=== PATIENT | female | born 1960 | race Caucasian/White ===

== ENCOUNTER 2017-09-28 15:15 | Inpatient (IN) | payer OTHER ==
--- NOTE | 2017-09-28 15:38 | Emergency Department Report ---
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 She's had similar episode in the past and they told her it was thoracic chest wall pain. She denies any urinary burning frequency or urgency. Denies any nausea or vomiting. She has a history of high blood pressure but denies any history of heart disease. - ROS Review of Systems: All systems are negative unless stated in HPI above - Exam Vital Signs: Vital Signs 09/28/17 15:24 Temperature 98.7 F Pulse Rate 65 Respiratory 16 Rate Blood Pressure 136/85 O2 Sat by Pulse 99 Oximetry Physical Exam: Gen.: This is a 57-year-old female well-nourished well-developed in no acute distress Abdomen: Tender to palpate to epigastric area. Positive bowel sounds in all quadrants. CV: S1, S2. Regular rate and rhythm. No chest wall tenderness MSE screening note: Focused history and physical exam performed. Due to findings the following was ordered: ED Medical Decision Making - Medical Decision Making MDM: Patient screened by provider in triage area. Appropriate protocol initiated and patient to be seen in main ED by ED Disposition for MSE Condition: Stable
[2017-09-28 16:01] LABS: Basophils % (Auto) 0.8 % (0.0-1.8); Eosinophils % (Auto) 5.7 % (0.0-4.3); Hematocrit 43.7 % (30.3-42.9); Hemoglobin 14.5 gm/dl (10.1-14.3); Mean Corpuscular HGB Conc 33 % (30-34); Mean Corpuscular Hemoglobin 31 pg (28-32); Mean Corpuscular Volume 92 fl (79-97); Platelet Count 288 K/mm3 (140-440); Red Blood Count 4.77 M/mm3 (3.65-5.03); Red Cell Distribution Width 12.7 % (13.2-15.2); White Blood Count 9.3 K/mm3 (4.5-11.0)
[2017-09-28 16:08] LABS: Anion Gap 19 mmol/L; BUN/Creatinine Ratio 30; Blood Urea Nitrogen 15 mg/dL (7-17); Calcium 9.1 mg/dL (8.4-10.2); Carbon Dioxide 22 mmol/L (22-30); Chloride 101.8 mmol/L (98-107); Glucose 145 mg/dL (65-100); Potassium 4.4 mmol/L (3.6-5.0); Sodium 138 mmol/L (137-145)
[2017-09-28 16:55] LABS: Cholesterol 213 mg/dL (50-199); HDL Cholesterol 32 mg/dL (40-59); LDL Cholesterol,Direct TNR mg/dL (50-130); Triglycerides 426 mg/dL (2-149)
[2017-09-28 17:06] LABS: Bacteria,Urine 1+ /HPF (Negative); Bilirubin,Urine NEG (Negative); Blood,Urine NEG (Negative); Ketones,Urine TR mg/dL (Negative); Leukocyte Esterase,Urine MOD (Negative); Mucus,Urine FEW /HPF; Nitrite,Urine NEG (Negative)
[2017-09-28] MEDS ORDERED: BABY ASPIRIN PO ONE (17:30)
--- NOTE | 2017-09-28 17:38 | Emergency Department Report ---
ED Chest Pain HPI - General Chief Complaint: Chest Pain Stated Complaint: CHEST PAIN Time Seen by Provider: 09/28/17 15:35 Source: patient Mode of arrival: Ambulatory Limitations: Language Barrier - History of Present Illness Initial Comments: Patient is 57 years old female , she came today with mid sternal chest pain started around 2 PM this afternoon. Pain radiated to her back and neck described as heaviness and tightness she never had any pain like this before. No history of coronary artery disease before but she does not follow-up with any doctor. Patient denied shortness of breath, cough, fever. MD Complaint: chest pain -: This afternoon Onset: during exertion Pain Location: substernal Pain Radiation: back, neck Severity scale (0 -10): 5 Quality: tightness, pressure re: nausea - Related Data Allergies Allergy/AdvReac Type Severity Reaction Status Date / Time No Known Allergies Allergy Verified 09/28/17 15:29 Heart Score - HEART Score History: Moderately suspicious EKG: Non-specific Age: 45-65 Risk factors: 1-2 risk factors Troponin: 1-3x normal limit HEART Score: 5 - Critical Actions Critical Actions: 4-6 pts:12-16.6% risk of adverse cardiac event. Should be admitted ED Review of Systems ROS: Stated complaint: CHEST PAIN Other details as noted in HPI Comment: All other systems reviewed and negative Constitutional: denies: chills, fever Respiratory: denies: cough, orthopnea, shortness of breath, SOB with exertion, SOB at rest Cardiovascular: chest pain. denies: palpitations, dyspnea on exertion, orthopnea Gastrointestinal: denies: abdominal pain, nausea, vomiting, diarrhea, constipation, hematemesis Musculoskeletal: denies: back pain Neurological: weakness (generalized). denies: numbness (generalized), paresthesias, confusion, abnormal gait, vertigo ED Past Medical Hx - Past Medical History Previous Medical History?: Yes Hx Hypertension: Yes - Surgical History Past Surgical History?: Yes Additional Surgical History: adnoids - Social History Smoking Status: Current Every Day Smoker Substance Use Type: None ED Physical Exam - General Limitations: Language Barrier General appearance: alert, in no apparent distress - Head Head exam: Present: normocephalic, normal inspection - ENT ENT exam: Present: normal exam, normal orophraynx - Neck Neck exam: Present: normal inspection - Respiratory Respiratory exam: Present: normal lung sounds bilaterally, decreased breath sounds, prolonged expiratory. Absent: respiratory distress, wheezes, rales, rhonchi, chest wall tenderness, accessory muscle use - Cardiovascular Cardiovascular Exam: Present: regular rate, normal rhythm, normal heart sounds - GI/Abdominal GI/Abdominal exam: Present: soft, normal bowel sounds. Absent: distended, tenderness, guarding, rebound, rigid, diminished bowel sounds, mass, bruit, pulsatile mass, hernia - Extremities Exam Extremities exam: Present: normal inspection, full ROM, normal capillary refill - Back Exam Back exam: Present: normal inspection. Absent: tenderness, CVA tenderness (R), CVA tenderness (L) - Neurological Exam Neurological exam: Present: alert, oriented X3, CN II-XII intact, normal gait, reflexes normal. Absent: motor sensory deficit - Skin Skin exam: Present: warm, intact, normal color ED Course Vital Signs 09/28/17 09/28/17 09/28/17 15:24 16:57 16:59 Temperature 98.7 F 98.5 F Pulse Rate 65 60 60 Respiratory 16 16 Rate Blood Pressure 136/85 Blood Pressure 121/70 [Right] O2 Sat by Pulse 99 Oximetry 09/28/17 17:01 Temperature Pulse Rate Respiratory 18 Rate Blood Pressure Blood Pressure [Right] O2 Sat by Pulse 97 Oximetry - Reevaluation(s) Reevaluation #2: 09/28/17 17:42 patient stated that she is pain free now ED Medical Decision Making - Lab Data Result diagrams: 09/28/17 15:35 09/28/17 15:35 - EKG Data -: EKG Interpreted by De EKG shows normal: sinus rhythm Rate: normal - EKG Data Interpretation: no acute changes - Medical Decision Making discussed with Dr Sommer to admit to the hospital for Non STEMI and chest pain work-up Critical care attestation.: If time is entered above; I have spent that time in minutes in the direct care of this critically ill patient, excluding procedure time. ED Disposition Clinical Impression: Non-ST elevated myocardial infarction, Chest pain Disposition: DC-[id number] OP ADMIT IP TO THIS HOSP Is pt being admited?: Yes Condition: Stable Instructions: Chest Pain (ED)
[2017-09-28] MEDS ORDERED: NITROSTAT SL PRN (18:01)
[2017-09-28] MEDS ORDERED: TYLENOL PO PRN (18:01)
[2017-09-28] MEDS ORDERED: PROVENTIL IH PRN (18:01)
[2017-09-28] MEDS ORDERED: SODIUM CHLORIDE FLUSH SYRINGE 10 ML IV PRN (18:01)
[2017-09-28] MEDS ORDERED: ZOFRAN IV PRN (18:01)
[2017-09-28] MEDS ORDERED: DILAUDID IV PRN (18:01)
[2017-09-28] MEDS ORDERED: MILK OF MAGNESIA PO PRN (18:01)
[2017-09-28] MEDS ORDERED: DULCOLAX PR PRN (18:01)
--- NOTE | 2017-09-28 18:01 | History and Physical Report ---
History of Present Illness Chief complaint: My chest hurts History of present illness: 57 YO Female with Nicotine Dependence, Obesity, HTN presents to ED for evaluation. Pt states that she experienced pain in her chest today. Pt states that pain started around 1400hrs. Pain is 5/10, substernal, radiates to her back and neck, crushing in nature, not worsened with exertion, or relieved with rest. Pt denies fever, chills, palpitations, NVD, syncope, productive cough, shortness of breath, recent ill contacts, BRBPR, hemoptysis, leg pain, calf pain , prolonted travel/immobility, individual/family history of DVT/PE. Pt seen and evaluated in ED and found to have elevated troponin. Past History Past Medical History: hypertension, other (obesity) Past Surgical History: tonsillectomy Social history: , lives with family, smoking Family history: diabetes, hypertension Medications and Allergies Allergies Allergy/AdvReac Type Severity Reaction Status Date / Time No Known Allergies Allergy Verified 09/28/17 15:29 Home Medications Medication Instructions Recorded Confirmed Last Taken Type No Known Home Medications [No 09/28/17 09/28/17 Unknown History Reported Home Medications] Review of Systems Constitutional: no weight loss, no weight gain, no fever, no chills, no sweats Ears, nose, mouth and throat: no ear pain, no ear discharge, no tinnitis, no decreased hearing, no nose pain, no nasal congestion, no nasal discharge Breasts: no change in shape, no swelling, no mass Cardiovascular: chest pain, no orthopnea, no palpitations, no syncope, no shortness of breath, no dyspnea on exertion, no paroxysmal nocturnal dyspnea Respiratory: no cough, no cough with sputum, no excessive sputum, no hemoptysis , no shortness of breath Gastrointestinal: no abdominal pain, no nausea, no vomiting, no diarrhea Genitourinary Female: no menorrhagia, no dysuria, no urinary frequency, no urgency, no stress incontinence Rectal: no pain, no incontinence, no bleeding Musculoskeletal: no neck stiffness, no neck pain, no shooting arm pain, no arm numbness/tingling, no low back pain Integumentary: no rash, no pruritis, no redness, no sores, no wounds Neurological: no transient paralysis, no paralysis, no weakness, no parathesias , no numbness, no tingling Psychiatric: no anxiety, no memory loss, no change in sleep habits, no sleep disturbances, no insomnia, no hypersomnia Endocrine: no cold intolerance, no heat intolerance, no polyphagia, no excessive thirst, no polydipsia Hematologic/Lymphatic: no easy bruising, no easy bleeding Allergic/Immunologic: no urticaria, no allergic rhinitis, no wheezing Exam - Constitutional Vitals: Temp Pulse Resp BP Pulse Ox 98.5 F 60 18 121/70 97 09/28/17 16:57 09/28/17 16:59 09/28/17 17:01 09/28/17 16:57 09/28/17 17:01 General appearance: Present: no acute distress, well-nourished - EENT Eyes: Present: PERRL ENT: hearing intact, clear oral mucosa - Neck Neck: Present: supple, normal ROM - Respiratory Respiratory effort: normal Respiratory: bilateral: CTA - Cardiovascular Heart Sounds: Present: S1 & S2. Absent: rub, click - Extremities Extremities: pulses symmetrical, No edema Peripheral Pulses: within normal limits - Abdominal General gastrointestinal: Present: soft, non-tender, non-distended, normal bowel sounds Female genitourinary: Present: normal - Integumentary Integumentary: Present: clear, warm, dry - Musculoskeletal Musculoskeletal: gait normal, strength equal bilaterally - Psychiatric Psychiatric: appropriate mood/affect, intact judgment & insight - Neurologic Neurologic: CNII-XII intact, moves all extremities Results - Labs CBC & Chem 7: 09/28/17 18:29 09/28/17 18:29 Labs: Abnormal lab results 09/28/17 09/28/17 Range/Units 15:35 15:35 Hgb 14.5 H (10.1-14.3) gm/dl Hct 43.7 H (30.3-42.9) % RDW 12.7 L (13.2-15.2) % Eos % (Auto) 5.7 H (0.0-4.3) % Eos # 0.5 H (0.0-0.4) K/mm3 Creatinine 0.5 L (0.7-1.2) mg/dL Glucose 145 H (65-100) mg/dL Troponin T 0.161 H* (0.00-0.029) ng/mL Triglycerides 426 H (2-149) mg/dL Cholesterol 213 H (50-199) mg/dL HDL Cholesterol 32 L (40-59) mg/dL Assessment and Plan - Patient Problems (1) Non-ST elevated myocardial infarction Current Visit: Yes Status: Acute Plan to address problem: ADmit to telemetry, Heparin drip, serial cardiac enzymes, ekg, cardiology consulted, echo, (2) HTN (hypertension) Current Visit: Yes Status: Acute Qualifiers: Hypertension type: H Plan to address problem: monitor bp q shift, continue medical management. (3) HLD (hyperlipidemia) Current Visit: Yes Status: Acute Qualifiers: Hyperlipidemia type: H Plan to address problem: lipid panel, statin therapy as indicated. low cholesterol diet, (4) Obesity (BMI 30.0-34.9) Current Visit: Yes Status: Acute Plan to address problem: balanced diet, increased physical activity at discharge (5) DVT prophylaxis Current Visit: Yes Status: Acute
[2017-09-28 18:41] LABS: Alanine Aminotransferase 22 units/L (7-56); Albumin 4.1 g/dL (3.9-5); Albumin/Globulin Ratio 2.1 %; Alkaline Phosphatase 99 units/L (35-129); Total Protein 6.1 g/dL (6.3-8.2)
[2017-09-28 18:59] LABS: Bilirubin,Direct < 0.2 mg/dL (0-0.2)
[2017-09-28 18:59] LABS: Eosinophils % (Auto) 4.9 % (0.0-4.3); Hematocrit 42.5 % (30.3-42.9); Hemoglobin 14.3 gm/dl (10.1-14.3); Mean Corpuscular HGB Conc 34 % (30-34); Mean Corpuscular Hemoglobin 31 pg (28-32); Mean Corpuscular Volume 91 fl (79-97); Platelet Count 276 K/mm3 (140-440); Red Blood Count 4.65 M/mm3 (3.65-5.03); Red Cell Distribution Width 12.7 % (13.2-15.2); White Blood Count 9.2 K/mm3 (4.5-11.0)
[2017-09-28] MEDS ORDERED: HEPARIN 10,000 UNITS/10 ML IV ONE (19:00)
[2017-09-28] MEDS ORDERED: HEPARIN/ 0.45% NACL-25,000 UNIT/500 ML 25,000 UNIT/500 ML BAG IV SCH (19:00)
[2017-09-28 19:01] LABS: Anion Gap 17 mmol/L; BUN/Creatinine Ratio 28; Blood Urea Nitrogen 14 mg/dL (7-17); Calcium 9.1 mg/dL (8.4-10.2); Carbon Dioxide 25 mmol/L (22-30); Chloride 101.7 mmol/L (98-107); Glucose 115 mg/dL (65-100); Potassium 4.4 mmol/L (3.6-5.0); Sodium 139 mmol/L (137-145)
[2017-09-28 19:08] LABS: INR 0.89 (0.87-1.13)
[2017-09-28 19:09] LABS: Partial Thromboplastin Time 29.1 Sec. (24.2-36.6)
--- NOTE | 2017-09-28 19:20 | XRay Report ---
FINAL REPORT EXAM: XR CHEST 1V AP HISTORY: chest pain TECHNIQUE: upright single view chest PRIORS: None. FINDINGS: Cardiac and mediastinal contours are unremarkable. No focal pulmonary infiltrate is identified. No pleural fluid collection seen. Pulmonary vasculature is unremarkable. IMPRESSION: Negative single-view chest
[2017-09-28] MEDS ORDERED: HEPARIN/ 0.45% NACL-25,000 UNIT/500 ML 25,000 UNIT/500 ML BAG ONE (19:41)
[2017-09-28] MEDS ORDERED: HEPARIN 10,000 UNITS/10 ML ONE (19:42)
[2017-09-29] MEDS: PEPCID PO SCH ×2 (00:45→15:47)
--- NOTE | 2017-09-29 09:50 | Progress Note ---
Assessment and Plan Assessment and plan: Patient is a 57 YO Female with Nicotine Dependence, Obesity, HTN presents to ED for evaluation of chest pain and noted to Have acute coronary syndrome. History was limited due to lung which barrier although persisted and was able to translate according to the patient's request. On admission Pt denies fever, chills, palpitations, NVD, syncope, productive cough, shortness of breath, recent ill contacts, BRBPR, hemoptysis, leg pain, calf pain, prolonted travel/immobility, individual/family history of DVT/PE. Acute coronary syndrome possible non-ST elevated MD * Discussed with cardiology concerned about subtle elevation of ST segments consistent with an inferior MD although not available old EKGs for comparison. They decided to proceed with cardiac catheterization and treatment for subacute inferior injury. Patient received 2 stents old chest with ICU. HTN HLD OBESITY WITH BMI 30.0-34.9 PLAN * Continue current treatment, Heparin gtt, ASA, statin. Plavix, or possible need second PCI. BB was not given on admission secondary to low BP and Heart rate * Echo * Counselling on weight loss * DVT/GI prophy The high probability of a clinically significant, sudden or life threatening deterioration of the [cardiac] system(s) required my full and direct attention, intervention and personal management. The aggregate critical care time was [35] minutes. This time is in addition to time spent performing reported procedures but includes the following: [x] Data Review and interpretation [x] Patient assessment and monitoring of vital signs [x] Documentation [x] Medication orders and management History Interval history: Patient seen and examined in no acute distress she is Korean-speaking interpretation provided by geriatric nursing assistant. Patient's request. At this point she denies any further chest pain nausea vomiting or diarrhea. Hospitalist Physical - Physical exam Narrative exam: VITAL SIGNS: Reviewed. GENERAL: The patient appeared well nourished and normally developed. Vital signs as documented. HEAD: No signs of head trauma. EYES: Pupils are equal. Extraocular motions intact. EARS: Hearing grossly intact. MOUTH: Oropharynx is normal. NECK: No adenopathy, no JVD. CHEST: Chest with clear breath sounds bilaterally. No wheezes, rales, or rhonchi. CARDIAC: Regular rate and rhythm. S1 and S2, without murmurs, gallops, or rubs. VASCULAR: No Edema. Peripheral pulses normal and equal in all extremities. ABDOMEN: Soft, without detectable tenderness. No sign of distention. No rebound or guarding, and no masses palpated. Bowel Sounds normal. MUSCULOSKELETAL: Good range of motion of all major joints. Extremities without clubbing, cyanosis or edema. NEUROLOGIC EXAM: Alert and oriented x 3. No focal sensory or strength deficits. Speech normal. Follows commands. PSYCHIATRIC: Mood normal. SKIN: No rash or lesions. - Constitutional Vitals: Temp Pulse Resp BP Pulse Ox 99.5 F 65 17 115/61 94 09/29/17 08:17 09/29/17 08:17 09/29/17 08:17 09/29/17 08:17 09/29/17 08:17 General appearance: Present: no acute distress, well-nourished Results - Labs CBC & Chem 7: 09/30/17 03:34 10/01/17 04:58 Labs: Laboratory Last Values WBC 9.2 K/mm3 (4.5-11.0) 09/28/17 18:29 RBC 4.65 M/mm3 (3.65-5.03) 09/28/17 18:29 Hgb 14.3 gm/dl (10.1-14.3) 09/28/17 18:29 Hct 42.5 % (30.3-42.9) 09/28/17 18:29 MCV 91 fl (79-97) 09/28/17 18:29 MCH 31 pg (28-32) 09/28/17 18:29 MCHC 34 % (30-34) 09/28/17 18:29 RDW 12.7 % (13.2-15.2) L 09/28/17 18:29 Plt Count 276 K/mm3 (140-440) 09/28/17 18:29 Lymph % (Auto) 27.6 % (13.4-35.0) 09/28/17 18:29 [place] % (Auto) 4.8 % (0.0-7.3) 09/28/17 18:29 Eos % (Auto) 4.9 % (0.0-4.3) H 09/28/17 18:29 Baso % (Auto) 1.0 % (0.0-1.8) 09/28/17 18:29 Lymph # 2.6 K/mm3 (1.2-5.4) 09/28/17 18:29 [place] # 0.4 K/mm3 (0.0-0.8) 09/28/17 18:29 Eos # 0.5 K/mm3 (0.0-0.4) H 09/28/17 18:29 Baso # 0.1 K/mm3 (0.0-0.1) 09/28/17 18:29 Seg Neutrophils % 61.7 % (40.0-70.0) 09/28/17 18:29 Seg Neutrophils # 5.7 K/mm3 (1.8-7.7) 09/28/17 18:29 PT 12.5 Sec. (12.2-14.9) 09/28/17 18:29 INR 0.89 (0.87-1.13) 09/28/17 18:29 APTT 29.1 Sec. (24.2-36.6) 09/28/17 18:29 Heparin Anti-Xa Level 0.31 U.I./ml (0.3-0.7) 09/29/17 00:58 Sodium 139 mmol/L (137-145) 09/28/17 18:29 Potassium 4.4 mmol/L (3.6-5.0) 09/28/17 18:29 Chloride 101.7 mmol/L (98-107) 09/28/17 18:29 Carbon Dioxide 25 mmol/L (22-30) 09/28/17 18:29 Anion Gap 17 mmol/L 09/28/17 18:29 BUN 14 mg/dL (7-17) 09/28/17 18:29 Creatinine 0.5 mg/dL (0.7-1.2) L 09/28/17 18:29 Estimated GFR > 60 ml/min 09/28/17 18:29 BUN/Creatinine Ratio 28 % 09/28/17 18:29 Glucose 115 mg/dL (65-100) H 09/28/17 18:29 Calcium 9.1 mg/dL (8.4-10.2) 09/28/17 18:29 Total Bilirubin 0.20 mg/dL (0.1-1.2) 09/28/17 15:35 Direct Bilirubin < 0.2 mg/dL (0-0.2) 09/28/17 15:35 Indirect Bilirubin 0.0 mg/dL 09/28/17 15:35 AST 31 units/L (5-40) 09/28/17 15:35 ALT 22 units/L (7-56) 09/28/17 15:35 Alkaline Phosphatase 99 units/L (35-129) 09/28/17 15:35 Troponin T 0.382 ng/mL (0.00-0.029) H* D 09/29/17 00:58 Total Protein 6.1 g/dL (6.3-8.2) L 09/28/17 15:35 Albumin 4.1 g/dL (3.9-5) 09/28/17 15:35 Albumin/Globulin Ratio 2.1 % 09/28/17 15:35 Triglycerides 426 mg/dL (2-149) H 09/28/17 15:35 Cholesterol 213 mg/dL (50-199) H 09/28/17 15:35 LDL Cholesterol Direct TNR 09/28/17 15:35 HDL Cholesterol 32 mg/dL (40-59) L 09/28/17 15:35 Cholesterol/HDL Ratio 6.65 % 09/28/17 15:35 Urine Color Yellow (Yellow) 09/28/17 15:58 Urine Turbidity Clear (Clear) 09/28/17 15:58 Urine pH 6.0 (5.0-7.0) 09/28/17 15:58 Ur Specific [place] 1.023 (1.003-1.030) 09/28/17 15:58 Urine Protein 100 mg/dl mg/dL (Negative) 09/28/17 15:58 Urine Glucose (UA) Neg mg/dL (Negative) 09/28/17 15:58 Urine Ketones Tr mg/dL (Negative) 09/28/17 15:58 Urine Blood Neg (Negative) 09/28/17 15:58 Urine Nitrite Neg (Negative) 09/28/17 15:58 Urine Bilirubin Neg (Negative) 09/28/17 15:58 Urine Urobilinogen 2.0 mg/dL (<2.0) 09/28/17 15:58 Ur Leukocyte Esterase Mod (Negative) 09/28/17 15:58 Urine WBC (Auto) 1.0 /HPF (0.0-6.0) 09/28/17 15:58 Urine RBC (Auto) 2.0 /HPF (0.0-6.0) 09/28/17 15:58 U Epithel Cells (Auto) 8.0 /HPF (0-13.0) 09/28/17 15:58 Urine Bacteria (Auto) 1+ /HPF (Negative) 09/28/17 15:58 Calcium Oxalate Crystal 1+ 09/28/17 15:58 Urine Mucus Few /HPF 09/28/17 15:58 - Imaging and Cardiology Chest x-ray: image reviewed (no acute pathology)
--- NOTE | 2017-09-29 11:12 | Consultation ---
History of Present Illness Consult date: 09/29/17 Consult reason: chest pain History of present illness: The patient is a 57-year-old Uz[place]-speaking female who is visiting from [place]. History is difficult due to long wait barrier, but the patient's daughter is at the bedside translating. She presented to the hospital yesterday with chest pain. Was seen in the emergency room, evaluated and referred for admission. Cardiac consultation was requested for chest pain assessment. On further review of the EKGs, I find that she has QS complexes in the inferior leads with subtle elevation in the ST segments, consistent with an inferior myocardial infarction. There are no available old ECGs for comparison, therefore would have to assume that this is a possible acute or subacute inferior injury. Patient is currently comfortable, asymptomatic and hemodynamically stable on medications. Past medical history is reported with a history of hypertension, although patient has no current list of medications. She denies any prior cardiac history. Past History Past Medical History: hypertension, other (obesity) Past Surgical History: tonsillectomy Social history: , lives with family, smoking Family history: diabetes, hypertension Medications and Allergies Allergies Allergy/AdvReac Type Severity Reaction Status Date / Time No Known Allergies Allergy Verified 09/28/17 15:29 Home Medications Medication Instructions Recorded Confirmed Last Taken Type No Known Home Medications [No 09/28/17 09/28/17 Unknown History Reported Home Medications] Active Meds: Active Medications Acetaminophen (Tylenol) 650 mg PO Q4H PRN PRN Reason: Pain MILD(1-3)/Fever >100.5/LIM Albuterol (Proventil) 2.5 mg IH Q4HRT PRN PRN Reason: Shortness Of Breath Atorvastatin Calcium (Lipitor) 40 mg PO QHS ON LICENSE OF [facility] Last Admin: 09/29/17 00:45 Dose: 40 mg Bisacodyl (Dulcolax) [address] QDAY PRN PRN Reason: Constipation unrelieved by MOM Famotidine (Pepcid) 20 mg PO BID ON LICENSE OF [facility] Last Admin: 09/29/17 00:45 Dose: 20 mg Hydromorphone HCl (Dilaudid) 0.5 mg IV Q3H PRN PRN Reason: Pain , Severe (7-10) Heparin Sodium/Sodium Chloride (Heparin/ 0.45% Nacl-25,000 Unit/500 Ml) 25,000 unit in 500 mls @ 20 mls/hr IV TITRATE IVAN; 1,000 UNITS/HR PRN Reason: Protocol Last Titration: 09/29/17 02:39 Dose: 1,000 units/hr, 20 mls/hr Magnesium Hydroxide (Milk Of Magnesia) 30 ml PO Q4H PRN PRN Reason: Constipation Nitroglycerin (Nitrostat) 0.4 mg SL Q5M PRN PRN Reason: Chest Pain Ondansetron HCl (Zofran) 4 mg IV Q8H PRN PRN Reason: N/V unrelieved by Reglan Sodium Chloride (Sodium Chloride Flush Syringe 10 Ml) 10 ml IV PRN PRN PRN Reason: LINE FLUSH Review of Systems Cardiovascular: chest pain, shortness of breath, no orthopnea, no palpitations, no rapid/irregular heart beat, no edema, no syncope, no lightheadedness Physical Examination Vital Signs Temp Pulse Resp BP Pulse Ox 98.7 F 65 16 136/85 99 09/28/17 15:24 09/28/17 15:24 09/28/17 15:24 09/28/17 15:24 09/28/17 15:24 General appearance: no acute distress HEENT: Positive: PERRL Neck: Positive: neck supple Cardiac: Positive: Reg Rate and Rhythm Lungs: Positive: clear to auscultation Neuro: Positive: Grossly Intact Abdomen: Positive: Soft Female genitourinary: deferred Skin: Positive: Clear Extremities: Absent: edema Results 09/28/17 18:29 09/28/17 18:29 Coagulation 09/28/17 Range/Units 18:29 PT 12.5 (12.2-14.9) Sec. INR 0.89 (0.87-1.13) APTT 29.1 (24.2-36.6) Sec. CBC 09/28/17 Range/Units 18:29 WBC 9.2 (4.5-11.0) K/mm3 RBC 4.65 (3.65-5.03) M/mm3 Hgb 14.3 (10.1-14.3) gm/dl Hct 42.5 (30.3-42.9) % Plt Count 276 (140-440) K/mm3 Lymph # 2.6 (1.2-5.4) K/mm3 [place] # 0.4 (0.0-0.8) K/mm3 Eos # 0.5 H (0.0-0.4) K/mm3 Baso # 0.1 (0.0-0.1) K/mm3 Comprehensive Metabolic Panel 09/28/17 Range/Units 18:29 Sodium 139 (137-145) mmol/L Potassium 4.4 (3.6-5.0) mmol/L Chloride 101.7 (98-107) mmol/L Carbon Dioxide 25 (22-30) mmol/L BUN 14 (7-17) mg/dL Creatinine 0.5 L (0.7-1.2) mg/dL Glucose 115 H (65-100) mg/dL Calcium 9.1 (8.4-10.2) mg/dL EKG interpretations - Telemetry EKG Rhythm: Sinus Rhythm (with QS complexes and ST elevation in inferior leads) Assessment and Plan - Patient Problems (1) Acute coronary syndrome Current Visit: Yes Status: Acute Plan to address problem: Patient presented with chest pain and ECG is abnormal, with QS complexes and inferior ST elevations suggestive of acute or subacute inferior injury. We will recommend immediate cardiac catheterization.
[2017-09-29] MEDS ORDERED: HEPARIN/NS 5000 UNIT/500ML(CATH LAB) 1,000 ML IR ONE (11:13)
[2017-09-29] MEDS ORDERED: NITROGLYCERIN SYRINGE 3 ML ONE (11:14)
[2017-09-29] MEDS ORDERED: CALAN ONE (11:14)
[2017-09-29] MEDS ORDERED: NACL 0.9% 500 ML 500 ML ONE ×2 (11:15→13:34)
[2017-09-29] MEDS: VERSED ONE ×2 (11:54→12:01)
[2017-09-29] MEDS: SUBLIMAZE ONE ×2 (11:54→12:01)
[2017-09-29] MEDS: XYLOCAINE 2% INFILTRATI ONE ×2 (11:55→12:04)
[2017-09-29] MEDS ORDERED: NACL 0.9% 500 ML 500 ML IV SCH (12:00)
[2017-09-29] MEDS: HEPARIN 10,000 UNITS/10 ML ONE ×2 (12:11→12:44)
[2017-09-29] MEDS ORDERED: AGGRASTAT DRIP (12.5 MG/250 ML) 12,500 MCG/250 ML BAG IV ONE (12:17)
[2017-09-29] MEDS ORDERED: ALUM-MAG HYDROX-SIMETH 200-200-20MG/5ML ONE (12:44)
[2017-09-29] MEDS ORDERED: PLAVIX ONE (12:44)
--- NOTE | 2017-09-29 13:09 | Event Note ---
Date: 09/29/17 Cardiac cath via R femoral, no complications. Findings: RCA 100% (KENN) LAD 85% OM 80% LVEF 50-55%. Successful adhoc PCI of the RCA, excellent result, 0% residual, HUMZA 3 flow restored. 2.5-3.0mm DE stents. We will follow up with staged PCI of the LAD and OM on .
[2017-09-29] MEDS ORDERED: BABY ASPIRIN ONE (13:21)
[2017-09-29] MEDS ORDERED: FLUSH HEPARIN IV ONE (13:23)
--- NOTE | 2017-09-29 13:29 | Cardiac Catherization Report ---
CARDIAC CATHETERIZATION AND CORONARY ANGIOPLASTY REASON FOR PROCEDURE: The patient is a 57-year-old woman who presented with chest pain, admitted for acute coronary syndrome. ECGs revealed QS complexes in the inferior leads, associated with subtle ST elevations, consistent with a subacute or acute inferior injury. Immediate cardiac catheterization was recommended. PROCEDURE: The patient was prepped and draped in a sterile fashion after informed consent. The right femoral artery was entered using the Seldinger technique followed by placement of a 6-[place] Islander sheath. Selective left and right coronary angiography was performed using #4 right and left Anderson catheters. The right Judkin's was used for left ventricle angiography. The angiograms were reviewed. CORONARY ANGIOGRAPHY: The left main coronary artery was free of significant disease. The left anterior descending artery contained a long, irregular 85-90% stenosis of its mid segment, just after the origin of a medium sized diagonal branch. A [id number] ramus intermedius artery was free of significant disease. The large obtuse marginal branch of the circumflex artery was notable for a focal, 75-80% stenosis of its mid segment. The right coronary artery was dominant. This vessel was completely occluded in its distal AV groove segment, just after the acute margin. Left ventricular systolic function was at lower limits of normal, ejection fraction 50-55%. CORONARY ANGIOPLASTY: The angiograms were reviewed. We recommended ad hoc angioplasty of the distal right coronary artery occlusion, which is the infarct-related lesion. Following this, she will be recommended for staged 2-vessel intervention of the mid LAD and mid circumflex. We selected a #4 right Anderson guiding catheter and advanced to the right coronary ostium. A 0.014 inch Supervisor Riveting 50 guidewire was introduced, successfully penetrating the distal occlusion. Following wire placement, a balloon angioplasty was performed using a 2.5 mm balloon catheter. This reestablished flow, demonstrating a long, irregular, severe residual lesion between the acute margin on the origin of the right posterior descending branch. Serial, 2.5-3.0 mm Xience drug-eluting stents were then deployed, covering the entire lesional segment. Following stenting, there was an excellent angiographic result, HUMZA 3 flow was restored, and there was no residual stenosis. The procedure was well tolerated by the patient and there were no complications. CONCLUSION: 1. Severe 3-vessel coronary artery disease. 2. Distal AV groove occlusion of the right coronary artery is the infarct-related lesion. 3. Successful angioplasty and stenting, adventism of HUMZA 3 flow and excellent angiographic result following stent deployment, 2.5-3.0 mm drug-eluting stents. 4. Severe disease of the mid LAD, mid obtuse marginal branch, will be recommended for an elective staged intervention. 5. Left ventricular systolic function at the lower limits of normal, ejection fraction of 50-55%. [facility]# [id number] MICHELLE/NTS
[2017-09-29] MEDS ORDERED: HEPARIN 10,000 UNITS/10 ML IV ONE (14:00)
[2017-09-29] MEDS ORDERED: BABY ASPIRIN PO ONE (14:00)
[2017-09-29] MEDS ORDERED: NACL 0.9% 1000 ML 1,000 ML IV SCH (14:00)
[2017-09-29] MEDS: AGGRASTAT DRIP (12.5 MG/250 ML) 12,500 MCG/250 ML BAG IV SCH (15:15)
--- NOTE | 2017-09-29 18:19 | Consultation ---
History of Present Illness Consult date: 09/29/17 Requesting physician: DAYNA LIU Past History Past Medical History: hypertension, other (obesity) Past Surgical History: tonsillectomy Social history: , lives with family, smoking Family history: diabetes, hypertension Medications and Allergies Allergies Allergy/AdvReac Type Severity Reaction Status Date / Time No Known Allergies Allergy Verified 09/28/17 15:29 Home Medications Medication Instructions Recorded Confirmed Last Taken Type No Known Home Medications [No 09/28/17 09/28/17 Unknown History Reported Home Medications] Active Meds: Active Medications Acetaminophen (Tylenol) 650 mg PO Q4H PRN PRN Reason: Pain MILD(1-3)/Fever >100.5/LIM Albuterol (Proventil) 2.5 mg IH Q4HRT PRN PRN Reason: Shortness Of Breath Aspirin (Halfprin Ec) 81 mg PO QDAY IVAN Atorvastatin Calcium (Lipitor) 40 mg PO QHS [facility] Last Admin: 09/29/17 00:45 Dose: 40 mg Bisacodyl (Dulcolax) 10 mg KS QDAY PRN PRN Reason: Constipation unrelieved by MOM Clopidogrel Bisulfate (Plavix) 75 mg PO QDAY IVAN Famotidine (Pepcid) 20 mg PO BID [facility] Last Admin: 09/29/17 15:47 Dose: Not Given Hydromorphone HCl (Dilaudid) 0.5 mg IV Q3H PRN PRN Reason: Pain , Severe (7-10) Sodium Chloride (Nacl 0.45%) 500 mls @ 50 mls/hr IV DIRECT IVAN Sodium Chloride (Nacl 0.9% 500 Ml) 500 mls @ 50 mls/hr IV DIRECT IVAN Stop: 09/29/17 21:59 Last Admin: 09/29/17 13:41 Dose: 50 mls/hr Tirofiban/Sodium Chloride (Aggrastat Drip (12.5 Mg/250 Ml)) 12,500 mcg in 250 mls @ 13.5 mls/hr IV DIRECT IVAN PRN Reason: Protocol Stop: 10/01/17 13:59 Last Admin: 09/29/17 15:15 Dose: 13.5 mls/hr Sodium Chloride (Nacl 0.9% 1000 Ml) 1,000 mls @ 100 mls/hr IV DIRECT IVAN Stop: 09/30/17 01:59 Last Admin: 09/29/17 17:50 Dose: 100 mls/hr Isosorbide Mononitrate (Imdur) 30 mg PO QDAY IVAN Magnesium Hydroxide (Milk Of Magnesia) 30 ml PO Q4H PRN PRN Reason: Constipation Metoprolol Tartrate (Lopressor) 12.5 mg PO BID IVAN Nitroglycerin (Nitrostat) 0.4 mg SL Q5M PRN PRN Reason: Chest Pain Ondansetron HCl (Zofran) 4 mg IV Q8H PRN PRN Reason: N/V unrelieved by Reglan Sodium Chloride (Sodium Chloride Flush Syringe 10 Ml) 10 ml IV PRN PRN PRN Reason: LINE FLUSH Physical Examination Vital signs: Vital Signs Temp Pulse Resp BP Pulse Ox 98.7 F 65 16 136/85 99 09/28/17 15:24 09/28/17 15:24 09/28/17 15:24 09/28/17 15:24 09/28/17 15:24 Results - Laboratory Findings CBC and BMP: 09/28/17 18:29 09/28/17 18:29 PT/INR, D-dimer PT 12.5 Sec. (12.2-14.9) 09/28/17 18:29 INR 0.89 (0.87-1.13) 09/28/17 18:29 Abnormal lab findings: Abnormal Labs 09/28/17 09/28/17 09/28/17 18:29 18:29 18:29 RDW 12.7 L Eos % (Auto) 4.9 H Eos # 0.5 H Activated Clotting Time Creatinine 0.5 L Glucose 115 H POC Glucose Troponin T 0.224 H* D 09/28/17 09/29/17 09/29/17 21:16 00:58 07:28 RDW Eos % (Auto) Eos # Activated Clotting Time Creatinine Glucose POC Glucose 147 H Troponin T 0.303 H* D 0.382 H* D 09/29/17 09/29/17 09/29/17 12:33 12:42 13:13 RDW Eos % (Auto) Eos # Activated Clotting Time 406 H 191 H 213 H Creatinine Glucose POC Glucose Troponin T 09/29/17 14:33 RDW Eos % (Auto) Eos # Activated Clotting Time Creatinine Glucose POC Glucose 133 H Troponin T
[2017-09-29] MEDS: IMDUR PO SCH (19:23)
[2017-09-29 22:36] LABS: Hemoglobin 13.5 gm/dl (10.1-14.3)
[2017-09-30] MEDS: AGGRASTAT DRIP (12.5 MG/250 ML) 12,500 MCG/250 ML BAG IV SCH ×2 (02:15→19:20)
[2017-09-30] MEDS: PEPCID PO SCH ×2 (02:27→09:50)
[2017-09-30] MEDS: LOPRESSOR PO SCH ×2 (02:27→09:50)
[2017-09-30] MEDS: NACL 0.45% 500 ML IV SCH ×2 (03:51→10:47)
[2017-09-30 03:54] LABS: Basophils % (Auto) 0.9 % (0.0-1.8); Eosinophils % (Auto) 5.2 % (0.0-4.3); Hematocrit 36.8 % (30.3-42.9); Hemoglobin 12.9 gm/dl (10.1-14.3); Mean Corpuscular HGB Conc 35 % (30-34); Mean Corpuscular Hemoglobin 32 pg (28-32); Mean Corpuscular Volume 91 fl (79-97); Platelet Count 246 K/mm3 (140-440); Red Blood Count 4.05 M/mm3 (3.65-5.03); Red Cell Distribution Width 12.6 % (13.2-15.2); White Blood Count 7.6 K/mm3 (4.5-11.0)
[2017-09-30 04:16] LABS: Creatine Kinase MB 17.5 ng/mL (0.0-4.0)
[2017-09-30 04:18] LABS: Anion Gap 17 mmol/L; BUN/Creatinine Ratio 25; Blood Urea Nitrogen 10 mg/dL (7-17); Calcium 8.1 mg/dL (8.4-10.2); Carbon Dioxide 21 mmol/L (22-30); Creatine Kinase 327 units/L (30-135); Glucose 132 mg/dL (65-100); Potassium 3.9 mmol/L (3.6-5.0); Sodium 141 mmol/L (137-145)
[2017-09-30] MEDS: IMDUR PO SCH (09:50)
[2017-09-30] MEDS: HALFPRIN EC PO SCH (09:50)
[2017-09-30] MEDS: PLAVIX PO SCH (10:47)
--- NOTE | 2017-09-30 11:43 | Progress Note ---
Assessment and Plan ACS (NSTEMI) HTNTobacco Use disorder CAD s/p stenting Hyperlipidemia Obesity (BMI 33) - Continue anticoagulation / antiplatelet therapy - secondary prevention; tobacco cessation; lipid therapy; ASA; Plavix - weight loss counselled - GI prophylaxis - further interventional treatments per cardiology ...care plan discussed with patient and daughter in room Subjective Date of service: 09/30/17 Principal diagnosis: ACS; CAD s/p stenting; tobacco use disorder Interval history: Patient is seen today for: ACS; CAD s/p stenting; tobacco use disorder Seen and examined at bedside; 24hour events reviewed; nursing and respiratory care staff consulted; no adverse overnight events reported to me; resting peacefully in bed; denies acute chest pains or increased SOB; No N/V/F/C; daughter in law in room; No N/V/F/C Objective Vital Signs - 12hr 09/29/17 09/30/17 09/30/17 23:50 00:00 00:10 Temperature 98.8 F Pulse Rate 62 61 61 Respiratory 17 17 17 Rate Blood Pressure 126/61 121/62 121/62 O2 Sat by Pulse 95 97 97 Oximetry 09/30/17 09/30/17 09/30/17 00:20 00:30 00:40 Temperature Pulse Rate 62 65 61 Respiratory 17 19 18 Rate Blood Pressure 106/53 121/61 121/61 O2 Sat by Pulse 96 96 97 Oximetry 09/30/17 09/30/17 09/30/17 00:50 01:00 01:10 Temperature Pulse Rate 60 59 L 63 Respiratory 17 16 20 Rate Blood Pressure 107/65 117/55 117/55 O2 Sat by Pulse 98 97 95 Oximetry 09/30/17 09/30/17 09/30/17 01:20 01:30 01:40 Temperature Pulse Rate 61 58 L 59 L Respiratory 17 17 17 Rate Blood Pressure 125/59 115/55 117/55 O2 Sat by Pulse 94 97 97 Oximetry 09/30/17 09/30/17 09/30/17 01:50 02:00 02:10 Temperature Pulse Rate 60 64 65 Respiratory 18 16 18 Rate Blood Pressure 112/61 120/59 120/59 O2 Sat by Pulse 97 98 97 Oximetry 09/30/17 09/30/17 09/30/17 02:20 02:27 02:30 Temperature Pulse Rate 61 65 57 L Respiratory 16 15 Rate Blood Pressure 113/60 103/62 120/65 O2 Sat by Pulse 95 96 Oximetry 09/30/17 09/30/17 09/30/17 02:40 02:50 03:00 Temperature Pulse Rate 49 L 61 64 Respiratory 12 14 17 Rate Blood Pressure 120/65 126/68 118/73 O2 Sat by Pulse 99 98 96 Oximetry 09/30/17 09/30/17 09/30/17 03:10 03:20 03:30 Temperature Pulse Rate 60 61 60 Respiratory 15 17 15 Rate Blood Pressure 118/73 112/67 115/62 O2 Sat by Pulse 96 97 97 Oximetry 09/30/17 09/30/17 09/30/17 03:40 03:50 04:00 Temperature 98.1 F Pulse Rate 67 61 65 Respiratory 17 18 12 Rate Blood Pressure 115/62 120/53 112/59 O2 Sat by Pulse 96 96 98 Oximetry 09/30/17 09/30/17 09/30/17 04:10 04:20 04:30 Temperature Pulse Rate 72 61 58 L Respiratory 17 14 17 Rate Blood Pressure 112/59 105/54 106/54 O2 Sat by Pulse 97 97 95 Oximetry 09/30/17 09/30/17 09/30/17 04:40 04:50 05:00 Temperature Pulse Rate 63 57 L 55 L Respiratory 19 17 15 Rate Blood Pressure 106/54 112/61 110/60 O2 Sat by Pulse 95 96 96 Oximetry 09/30/17 09/30/17 09/30/17 05:10 05:20 05:30 Temperature Pulse Rate 59 L 59 L 59 L Respiratory 15 15 15 Rate Blood Pressure 110/60 113/58 97/54 O2 Sat by Pulse 96 96 96 Oximetry 09/30/17 09/30/17 09/30/17 05:40 05:50 06:00 Temperature Pulse Rate 58 L 57 L 58 L Respiratory 15 17 16 Rate Blood Pressure 97/54 108/60 113/61 O2 Sat by Pulse 96 97 96 Oximetry 09/30/17 09/30/17 09/30/17 06:10 06:20 06:30 Temperature Pulse Rate 66 64 56 L Respiratory 12 15 Rate Blood Pressure 113/61 108/60 119/68 O2 Sat by Pulse 98 98 97 Oximetry 09/30/17 09/30/17 09/30/17 07:00 07:10 07:20 Temperature Pulse Rate 52 L 61 56 L Respiratory 16 21 14 Rate Blood Pressure 112/73 112/73 126/76 O2 Sat by Pulse 98 98 98 Oximetry 09/30/17 09/30/17 09/30/17 07:30 07:40 07:50 Temperature Pulse Rate 53 L 61 57 L Respiratory 15 14 15 Rate Blood Pressure 137/77 137/77 121/59 O2 Sat by Pulse 98 97 97 Oximetry 09/30/17 09/30/17 09/30/17 08:00 08:10 08:20 Temperature 98.9 F Pulse Rate 58 L 56 L 57 L Respiratory 13 15 14 Rate Blood Pressure 121/59 118/67 127/67 O2 Sat by Pulse 99 97 97 Oximetry 09/30/17 09/30/17 09/30/17 08:30 08:40 08:48 Temperature Pulse Rate 63 58 L Respiratory 15 16 Rate Blood Pressure 127/72 127/72 O2 Sat by Pulse 99 98 98 Oximetry 09/30/17 09/30/17 09/30/17 08:50 09:00 09:10 Temperature Pulse Rate 60 57 L 58 L Respiratory 12 13 12 Rate Blood Pressure 135/74 135/74 118/65 O2 Sat by Pulse 99 99 99 Oximetry 09/30/17 09/30/17 09/30/17 09:20 09:30 09:40 Temperature Pulse Rate 59 L 60 63 Respiratory 15 16 17 Rate Blood Pressure 134/79 126/76 126/76 O2 Sat by Pulse 98 99 98 Oximetry 09/30/17 09/30/17 09/30/17 09:50 10:00 10:10 Temperature Pulse Rate 60 72 67 Respiratory 18 13 15 Rate Blood Pressure 122/70 122/70 145/82 O2 Sat by Pulse 99 98 98 Oximetry 09/30/17 09/30/17 09/30/17 10:20 10:30 10:40 Temperature Pulse Rate 59 L 63 59 L Respiratory 20 12 15 Rate Blood Pressure 130/72 134/75 134/75 O2 Sat by Pulse 98 98 98 Oximetry 09/30/17 09/30/17 09/30/17 10:50 11:00 11:10 Temperature Pulse Rate 57 L 52 L 58 L Respiratory 18 16 21 Rate Blood Pressure 108/61 108/62 108/61 O2 Sat by Pulse 98 98 98 Oximetry Constitutional: no acute distress, alert Eyes: non-icteric ENT: oropharynx moist, other (mallampatti 2) Neck: supple, no lymphadenopathy, no JVD, other (no thyromegaly) Effort: mildly labored Ascultation: Bilateral: clear, diminished breath sounds Percussion: Bilateral: not dull Cardiovascular: regular rate and rhythm, other (no rubs or murmurs) Gastrointestinal: normoactive bowel sounds, soft, non-tender, non-distended, other (no palpable HSM) Integumentary: normal Extremities: no cyanosis, no edema, pink and warm, pulses normal, no ischemia or petechiae Neurologic: normal mental status, non-focal exam, pupils equal and round, motor strength normal and Psychiatric: mood appropriate, affect normal CBC and BMP: 10/02/17 03:18 10/02/17 03:18 ABG, PT/INR, D-dimer: PT/INR, D-dimer PT 12.5 Sec. (12.2-14.9) 09/28/17 18:29 INR 0.89 (0.87-1.13) 09/28/17 18:29 Abnormal lab findings: Abnormal Labs 09/28/17 09/28/17 09/28/17 18:29 18:29 18:29 MCHC RDW 12.7 L Eos % (Auto) 4.9 H Eos # 0.5 H Activated Clotting Time Heparin Anti-Xa Level Carbon Dioxide Creatinine 0.5 L Glucose 115 H POC Glucose Calcium Total Creatine Kinase CK-MB (CK-2) CK-MB (CK-2) Rel Index Troponin T 0.224 H* D 09/28/17 09/29/17 09/29/17 21:16 00:58 07:28 MCHC RDW Eos % (Auto) Eos # Activated Clotting Time Heparin Anti-Xa Level Carbon Dioxide Creatinine Glucose POC Glucose 147 H Calcium Total Creatine Kinase CK-MB (CK-2) CK-MB (CK-2) Rel Index Troponin T 0.303 H* D 0.382 H* D 09/29/17 09/29/17 09/29/17 12:33 12:42 13:13 MCHC RDW Eos % (Auto) Eos # Activated Clotting Time 406 H 191 H 213 H Heparin Anti-Xa Level Carbon Dioxide Creatinine Glucose POC Glucose Calcium Total Creatine Kinase CK-MB (CK-2) CK-MB (CK-2) Rel Index Troponin T 09/29/17 09/29/17 09/29/17 14:33 17:52 21:38 MCHC RDW Eos % (Auto) Eos # Activated Clotting Time Heparin Anti-Xa Level Carbon Dioxide Creatinine Glucose POC Glucose 133 H 147 H 119 H Calcium Total Creatine Kinase CK-MB (CK-2) CK-MB (CK-2) Rel Index Troponin T 09/30/17 09/30/17 09/30/17 00:47 02:07 03:34 MCHC 35 H RDW 12.6 L Eos % (Auto) 5.2 H Eos # Activated Clotting Time Heparin Anti-Xa Level 0.10 L Carbon Dioxide Creatinine Glucose POC Glucose 121 H Calcium Total Creatine Kinase CK-MB (CK-2) CK-MB (CK-2) Rel Index Troponin T 09/30/17 09/30/17 03:34 05:49 MCHC RDW Eos % (Auto) Eos # Activated Clotting Time Heparin Anti-Xa Level Carbon Dioxide 21 L Creatinine 0.4 L Glucose 132 H POC Glucose 134 H Calcium 8.1 L Total Creatine Kinase 327 H CK-MB (CK-2) 17.5 H CK-MB (CK-2) Rel Index 5.3 H Troponin T 0.713 H* D Chest x-ray: image reviewed (mild hypoventilation accentuates cardiac size; no acute process)
[2017-09-30] MEDS ORDERED: NACL 0.9% 500 ML 500 ML IV SCH (12:00)
--- NOTE | 2017-09-30 14:00 | Progress Note ---
Assessment and Plan Assessment and plan: Patient is a 57 YO Female with Nicotine Dependence, Obesity, HTN presents to ED for evaluation of chest pain and noted to Have acute coronary syndrome. History was limited due to lung which barrier although persisted and was able to translate according to the patient's request. On admission Pt denies fever, chills, palpitations, NVD, syncope, productive cough, shortness of breath, recent ill contacts, BRBPR, hemoptysis, leg pain, calf pain, prolonted travel/immobility, individual/family history of DVT/PE. Acute coronary syndrome possible non-ST elevated RI * Discussed with cardiology concerned about subtle elevation of ST segments consistent with an inferior RI although not available old EKGs for comparison. They decided to proceed with cardiac catheterization and treatment for subacute inferior injury. Patient received 2 stents old chest with ICU. HTN HLD OBESITY WITH BMI 30.0-34.9 PLAN * Continue current ICU For secondary repeat PCI in a.m. Labs remain stable. Treatment, Heparin gtt, ASA, statin, BB Plavix, * Echo * Counselling on weight loss * DVT/GI prophy The high probability of a clinically significant, sudden or life threatening deterioration of the [cardiac] system(s) required my full and direct attention, intervention and personal management. The aggregate critical care time was [35] minutes. This time is in addition to time spent performing reported procedures but includes the following: [x] Data Review and interpretation [x] Patient assessment and monitoring of vital signs [x] Documentation [x] Medication orders and management History Interval history: Patient seen and examined in no acute distress she is resting comfortably in no acute distress at this time. No further chest pain again.. Hospitalist Physical - Physical exam Narrative exam: VITAL SIGNS: Reviewed. GENERAL: The patient appeared well nourished and normally developed. Vital signs as documented. HEAD: No signs of head trauma. EYES: Pupils are equal. Extraocular motions intact. EARS: Hearing grossly intact. MOUTH: Oropharynx is normal. NECK: No adenopathy, no JVD. CHEST: Chest with clear breath sounds bilaterally. No wheezes, rales, or rhonchi. CARDIAC: Regular rate and rhythm. S1 and S2, without murmurs, gallops, or rubs. VASCULAR: No Edema. Peripheral pulses normal and equal in all extremities. ABDOMEN: Soft, without detectable tenderness. No sign of distention. No rebound or guarding, and no masses palpated. Bowel Sounds normal. MUSCULOSKELETAL: Good range of motion of all major joints. Extremities without clubbing, cyanosis or edema. NEUROLOGIC EXAM: Alert and oriented x 3. No focal sensory or strength deficits. Speech normal. Follows commands. PSYCHIATRIC: Mood normal. SKIN: No rash or lesions. - Constitutional Vitals: Temp Pulse Resp BP Pulse Ox 97.9 F 57 L 18 116/65 97 09/30/17 12:00 09/30/17 13:10 09/30/17 13:10 09/30/17 13:10 09/30/17 13:10 General appearance: Present: no acute distress, well-nourished Results - Labs CBC & Chem 7: 09/30/17 03:34 10/01/17 04:58 Labs: Laboratory Last Values WBC 7.6 K/mm3 (4.5-11.0) 09/30/17 03:34 RBC 4.05 M/mm3 (3.65-5.03) 09/30/17 03:34 Hgb 12.9 gm/dl (10.1-14.3) 09/30/17 03:34 Hct 36.8 % (30.3-42.9) 09/30/17 03:34 MCV 91 fl (79-97) 09/30/17 03:34 MCH 32 pg (28-32) 09/30/17 03:34 MCHC 35 % (30-34) H 09/30/17 03:34 RDW 12.6 % (13.2-15.2) L 09/30/17 03:34 Plt Count 246 K/mm3 (140-440) 09/30/17 03:34 Lymph % (Auto) 29.1 % (13.4-35.0) 09/30/17 03:34 [place] % (Auto) 6.0 % (0.0-7.3) 09/30/17 03:34 Eos % (Auto) 5.2 % (0.0-4.3) H 09/30/17 03:34 Baso % (Auto) 0.9 % (0.0-1.8) 09/30/17 03:34 Lymph # 2.2 K/mm3 (1.2-5.4) 09/30/17 03:34 [place] # 0.5 K/mm3 (0.0-0.8) 09/30/17 03:34 Eos # 0.4 K/mm3 (0.0-0.4) 09/30/17 03:34 Baso # 0.1 K/mm3 (0.0-0.1) 09/30/17 03:34 Seg Neutrophils % 58.8 % (40.0-70.0) 09/30/17 03:34 Seg Neutrophils # 4.5 K/mm3 (1.8-7.7) 09/30/17 03:34 PT 12.5 Sec. (12.2-14.9) 09/28/17 18:29 INR 0.89 (0.87-1.13) 09/28/17 18:29 APTT 29.1 Sec. (24.2-36.6) 09/28/17 18:29 Activated Clotting Time 125 (74-137) 09/29/17 15:34 Heparin Anti-Xa Level 0.10 U.I./ml (0.3-0.7) L 09/30/17 00:47 Sodium 141 mmol/L (137-145) 09/30/17 03:34 Potassium 3.9 mmol/L (3.6-5.0) 09/30/17 03:34 Chloride 107.0 mmol/L (98-107) 09/30/17 03:34 Carbon Dioxide 21 mmol/L (22-30) L 09/30/17 03:34 Anion Gap 17 mmol/L 09/30/17 03:34 BUN 10 mg/dL (7-17) 09/30/17 03:34 Creatinine 0.4 mg/dL (0.7-1.2) L 09/30/17 03:34 Estimated GFR > 60 ml/min 09/30/17 03:34 BUN/Creatinine Ratio 25 % 09/30/17 03:34 Glucose 132 mg/dL (65-100) H 09/30/17 03:34 POC Glucose 134 (70-105) H 09/30/17 05:49 Calcium 8.1 mg/dL (8.4-10.2) L 09/30/17 03:34 Total Bilirubin 0.20 mg/dL (0.1-1.2) 09/28/17 15:35 Direct Bilirubin < 0.2 mg/dL (0-0.2) 09/28/17 15:35 Indirect Bilirubin 0.0 mg/dL 09/28/17 15:35 AST 31 units/L (5-40) 09/28/17 15:35 ALT 22 units/L (7-56) 09/28/17 15:35 Alkaline Phosphatase 99 units/L (35-129) 09/28/17 15:35 Total Creatine Kinase 327 units/L (30-135) H 09/30/17 03:34 CK-MB (CK-2) 17.5 ng/mL (0.0-4.0) H 09/30/17 03:34 CK-MB (CK-2) Rel Index 5.3 (0-4) H 09/30/17 03:34 Troponin T 0.713 ng/mL (0.00-0.029) H* D 09/30/17 03:34 Total Protein 6.1 g/dL (6.3-8.2) L 09/28/17 15:35 Albumin 4.1 g/dL (3.9-5) 09/28/17 15:35 Albumin/Globulin Ratio 2.1 % 09/28/17 15:35 Triglycerides 426 mg/dL (2-149) H 09/28/17 15:35 Cholesterol 213 mg/dL (50-199) H 09/28/17 15:35 LDL Cholesterol Direct TNR 09/28/17 15:35 HDL Cholesterol 32 mg/dL (40-59) L 09/28/17 15:35 Cholesterol/HDL Ratio 6.65 % 09/28/17 15:35 Urine Color Yellow (Yellow) 09/28/17 15:58 Urine Turbidity Clear (Clear) 09/28/17 15:58 Urine pH 6.0 (5.0-7.0) 09/28/17 15:58 Ur Specific [place] 1.023 (1.003-1.030) 09/28/17 15:58 Urine Protein 100 mg/dl mg/dL (Negative) 09/28/17 15:58 Urine Glucose (UA) Neg mg/dL (Negative) 09/28/17 15:58 Urine Ketones Tr mg/dL (Negative) 09/28/17 15:58 Urine Blood Neg (Negative) 09/28/17 15:58 Urine Nitrite Neg (Negative) 09/28/17 15:58 Urine Bilirubin Neg (Negative) 09/28/17 15:58 Urine Urobilinogen 2.0 mg/dL (<2.0) 09/28/17 15:58 Ur Leukocyte Esterase Mod (Negative) 09/28/17 15:58 Urine WBC (Auto) 1.0 /HPF (0.0-6.0) 09/28/17 15:58 Urine RBC (Auto) 2.0 /HPF (0.0-6.0) 09/28/17 15:58 U Epithel Cells (Auto) 8.0 /HPF (0-13.0) 09/28/17 15:58 Urine Bacteria (Auto) 1+ /HPF (Negative) 09/28/17 15:58 Calcium Oxalate Crystal 1+ 09/28/17 15:58 Urine Mucus Few /HPF 09/28/17 15:58
[2017-10-01 06:33] LABS: INR 0.95 (0.87-1.13)
[2017-10-01 06:49] LABS: Anion Gap 16 mmol/L; BUN/Creatinine Ratio 18; Blood Urea Nitrogen 7 mg/dL (7-17); Calcium 8.6 mg/dL (8.4-10.2); Carbon Dioxide 22 mmol/L (22-30); Chloride 106.7 mmol/L (98-107); Glucose 129 mg/dL (65-100); Potassium 3.8 mmol/L (3.6-5.0); Sodium 141 mmol/L (137-145)
[2017-10-01] MEDS ORDERED: NACL 0.9% 1000 ML 1,000 ML ONE (07:20)
[2017-10-01] MEDS: PEPCID PO SCH ×3 (08:26→22:30)
[2017-10-01] MEDS: LOPRESSOR PO SCH ×2 (08:26→10:50)
[2017-10-01] MEDS: HALFPRIN EC PO SCH (10:12)
[2017-10-01] MEDS: PLAVIX PO SCH (10:13)
[2017-10-01] MEDS ORDERED: HALFPRIN EC PO ONE (10:13)
[2017-10-01] MEDS ORDERED: PLAVIX ONE (10:13)
--- NOTE | 2017-10-01 10:41 | Progress Note ---
Subjective Date of service: 10/01/17 Objective Vital Signs - 12hr 09/30/17 09/30/17 09/30/17 22:50 23:00 23:10 Temperature Pulse Rate 60 55 L 57 L Pulse Rate [ Right Dorsalis Pedis] Respiratory 19 17 18 Rate Blood Pressure 92/44 116/63 116/63 O2 Sat by Pulse 97 97 97 Oximetry 09/30/17 09/30/17 09/30/17 23:20 23:30 23:38 Temperature 98.1 F Pulse Rate 59 L 55 L Pulse Rate [ Right Dorsalis Pedis] Respiratory 17 17 Rate Blood Pressure 116/63 92/49 O2 Sat by Pulse 96 96 Oximetry 09/30/17 09/30/17 10/01/17 23:40 23:50 00:00 Temperature Pulse Rate 59 L 53 L 55 L Pulse Rate [ 55 L Right Dorsalis Pedis] Respiratory 18 18 18 Rate Blood Pressure 92/49 92/49 98/54 O2 Sat by Pulse 94 97 97 Oximetry 10/01/17 10/01/17 10/01/17 00:10 00:20 00:30 Temperature Pulse Rate 56 L 55 L 62 Pulse Rate [ Right Dorsalis Pedis] Respiratory 19 7 L 15 Rate Blood Pressure 98/54 98/54 127/64 O2 Sat by Pulse 96 96 99 Oximetry 10/01/17 10/01/17 10/01/17 00:40 00:50 01:00 Temperature Pulse Rate 62 62 60 Pulse Rate [ Right Dorsalis Pedis] Respiratory 19 19 18 Rate Blood Pressure 127/64 127/64 92/45 O2 Sat by Pulse 98 97 97 Oximetry 10/01/17 10/01/17 10/01/17 01:10 01:20 01:30 Temperature Pulse Rate 55 L 59 L 49 L Pulse Rate [ Right Dorsalis Pedis] Respiratory 17 18 15 Rate Blood Pressure 92/45 92/45 99/45 O2 Sat by Pulse 97 98 98 Oximetry 10/01/17 10/01/17 10/01/17 01:40 01:50 02:00 Temperature Pulse Rate 56 L 54 L 53 L Pulse Rate [ Right Dorsalis Pedis] Respiratory 16 16 16 Rate Blood Pressure 99/45 99/45 86/44 O2 Sat by Pulse 99 98 98 Oximetry 10/01/17 10/01/17 10/01/17 02:10 02:20 02:30 Temperature Pulse Rate 53 L 64 57 L Pulse Rate [ Right Dorsalis Pedis] Respiratory 17 15 17 Rate Blood Pressure 86/44 86/44 93/50 O2 Sat by Pulse 98 98 97 Oximetry 10/01/17 10/01/17 10/01/17 02:40 02:50 03:00 Temperature Pulse Rate 52 L 53 L 61 Pulse Rate [ Right Dorsalis Pedis] Respiratory 17 16 17 Rate Blood Pressure 93/50 93/50 98/48 O2 Sat by Pulse 97 98 98 Oximetry 10/01/17 10/01/17 10/01/17 03:10 03:20 03:30 Temperature Pulse Rate 58 L 58 L 57 L Pulse Rate [ Right Dorsalis Pedis] Respiratory 18 17 16 Rate Blood Pressure 93/50 93/50 101/58 O2 Sat by Pulse 96 95 95 Oximetry 10/01/17 10/01/17 10/01/17 03:40 03:50 04:00 Temperature 98.8 F Pulse Rate 56 L 57 L 59 L Pulse Rate [ 52 L Right Dorsalis Pedis] Respiratory 14 15 15 Rate Blood Pressure 98/48 98/48 104/60 O2 Sat by Pulse 96 96 97 Oximetry 10/01/17 10/01/17 10/01/17 04:10 04:20 04:30 Temperature Pulse Rate 59 L 61 54 L Pulse Rate [ Right Dorsalis Pedis] Respiratory 15 17 17 Rate Blood Pressure 101/58 101/58 95/47 O2 Sat by Pulse 95 97 97 Oximetry 10/01/17 10/01/17 10/01/17 04:40 04:50 05:00 Temperature Pulse Rate 75 59 L 58 L Pulse Rate [ Right Dorsalis Pedis] Respiratory 28 H 16 14 Rate Blood Pressure 104/60 104/60 107/61 O2 Sat by Pulse 98 96 98 Oximetry 10/01/17 10/01/17 10/01/17 05:10 05:20 05:30 Temperature Pulse Rate 53 L 58 L 60 Pulse Rate [ Right Dorsalis Pedis] Respiratory 17 16 17 Rate Blood Pressure 107/61 107/61 89/65 O2 Sat by Pulse 97 96 98 Oximetry 10/01/17 10/01/17 10/01/17 05:40 05:50 06:00 Temperature Pulse Rate 61 56 L 73 Pulse Rate [ Right Dorsalis Pedis] Respiratory 18 16 22 Rate Blood Pressure 109/67 109/67 109/67 O2 Sat by Pulse 99 99 99 Oximetry 10/01/17 10/01/17 10/01/17 07:00 07:10 07:20 Temperature Pulse Rate 54 L 52 L 52 L Pulse Rate [ Right Dorsalis Pedis] Respiratory 15 15 16 Rate Blood Pressure 109/67 109/67 109/56 O2 Sat by Pulse 96 96 97 Oximetry 10/01/17 10/01/17 10/01/17 07:30 07:40 07:50 Temperature Pulse Rate 59 L 54 L 58 L Pulse Rate [ Right Dorsalis Pedis] Respiratory 15 20 13 Rate Blood Pressure 109/56 109/56 109/56 O2 Sat by Pulse 96 96 97 Oximetry 10/01/17 10/01/17 10/01/17 08:00 08:10 08:20 Temperature 98.7 F Pulse Rate 54 L 59 L Pulse Rate [ Right Dorsalis Pedis] Respiratory 15 15 Rate Blood Pressure 121/69 121/69 O2 Sat by Pulse 98 98 98 Oximetry CBC and BMP: 09/30/17 03:34 10/01/17 04:58 ABG, PT/INR, D-dimer: PT/INR, D-dimer PT 13.2 Sec. (12.2-14.9) 10/01/17 04:58 INR 0.95 (0.87-1.13) 10/01/17 04:58 Abnormal lab findings: Abnormal Labs 09/28/17 09/28/17 09/28/17 15:35 15:35 15:35 Hgb 14.5 H Hct 43.7 H MCHC RDW 12.7 L Eos % (Auto) 5.7 H Eos # 0.5 H Activated Clotting Time Heparin Anti-Xa Level Carbon Dioxide Creatinine 0.5 L Glucose 145 H POC Glucose Calcium Total Creatine Kinase CK-MB (CK-2) CK-MB (CK-2) Rel Index Troponin T 0.161 H* Total Protein 6.1 L Triglycerides 426 H Cholesterol 213 H HDL Cholesterol 32 L 09/28/17 09/28/17 09/28/17 18:29 18:29 18:29 Hgb Hct MCHC RDW 12.7 L Eos % (Auto) 4.9 H Eos # 0.5 H Activated Clotting Time Heparin Anti-Xa Level Carbon Dioxide Creatinine 0.5 L Glucose 115 H POC Glucose Calcium Total Creatine Kinase CK-MB (CK-2) CK-MB (CK-2) Rel Index Troponin T 0.224 H* D Total Protein Triglycerides Cholesterol HDL Cholesterol 09/28/17 09/29/17 09/29/17 21:16 00:58 07:28 Hgb Hct MCHC RDW Eos % (Auto) Eos # Activated Clotting Time Heparin Anti-Xa Level Carbon Dioxide Creatinine Glucose POC Glucose 147 H Calcium Total Creatine Kinase CK-MB (CK-2) CK-MB (CK-2) Rel Index Troponin T 0.303 H* D 0.382 H* D Total Protein Triglycerides Cholesterol HDL Cholesterol 09/29/17 09/29/17 09/29/17 12:33 12:42 13:13 Hgb Hct MCHC RDW Eos % (Auto) Eos # Activated Clotting Time 406 H 191 H 213 H Heparin Anti-Xa Level Carbon Dioxide Creatinine Glucose POC Glucose Calcium Total Creatine Kinase CK-MB (CK-2) CK-MB (CK-2) Rel Index Troponin T Total Protein Triglycerides Cholesterol HDL Cholesterol 09/29/17 09/29/17 09/29/17 14:33 17:52 21:38 Hgb Hct MCHC RDW Eos % (Auto) Eos # Activated Clotting Time Heparin Anti-Xa Level Carbon Dioxide Creatinine Glucose POC Glucose 133 H 147 H 119 H Calcium Total Creatine Kinase CK-MB (CK-2) CK-MB (CK-2) Rel Index Troponin T Total Protein Triglycerides Cholesterol HDL Cholesterol 09/30/17 09/30/17 09/30/17 00:47 02:07 03:34 Hgb Hct MCHC 35 H RDW 12.6 L Eos % (Auto) 5.2 H Eos # Activated Clotting Time Heparin Anti-Xa Level 0.10 L Carbon Dioxide Creatinine Glucose POC Glucose 121 H Calcium Total Creatine Kinase CK-MB (CK-2) CK-MB (CK-2) Rel Index Troponin T Total Protein Triglycerides Cholesterol HDL Cholesterol 09/30/17 09/30/17 09/30/17 03:34 05:49 10:03 Hgb Hct MCHC RDW Eos % (Auto) Eos # Activated Clotting Time Heparin Anti-Xa Level Carbon Dioxide 21 L Creatinine 0.4 L Glucose 132 H POC Glucose 134 H 146 H Calcium 8.1 L Total Creatine Kinase 327 H CK-MB (CK-2) 17.5 H CK-MB (CK-2) Rel Index 5.3 H Troponin T 0.713 H* D Total Protein Triglycerides Cholesterol HDL Cholesterol 09/30/17 09/30/17 09/30/17 14:04 17:31 21:45 Hgb Hct MCHC RDW Eos % (Auto) Eos # Activated Clotting Time Heparin Anti-Xa Level Carbon Dioxide Creatinine Glucose POC Glucose 179 H 135 H 180 H Calcium Total Creatine Kinase CK-MB (CK-2) CK-MB (CK-2) Rel Index Troponin T Total Protein Triglycerides Cholesterol HDL Cholesterol 10/01/17 10/01/17 04:58 05:37 Hgb Hct MCHC RDW Eos % (Auto) Eos # Activated Clotting Time Heparin Anti-Xa Level Carbon Dioxide Creatinine 0.4 L Glucose 129 H POC Glucose 143 H Calcium Total Creatine Kinase CK-MB (CK-2) CK-MB (CK-2) Rel Index Troponin T Total Protein Triglycerides Cholesterol HDL Cholesterol
[2017-10-01] MEDS: IMDUR PO SCH (10:50)
[2017-10-01] MEDS ORDERED: HEPARIN/NS 5000 UNIT/500ML(CATH LAB) 1,000 ML IR ONE (11:47)
[2017-10-01] MEDS ORDERED: NITROGLYCERIN SYRINGE 6 ML ONE (11:50)
[2017-10-01] MEDS: VERSED ONE ×3 (11:59→12:52)
[2017-10-01] MEDS: XYLOCAINE 2% INFILTRATI ONE ×2 (12:00→12:11)
[2017-10-01] MEDS: SUBLIMAZE ONE ×3 (12:00→12:50)
[2017-10-01] MEDS: HEPARIN 10,000 UNITS/10 ML ONE ×2 (12:13→12:37)
--- NOTE | 2017-10-01 13:37 | Event Note ---
Date: 10/01/17 Successful 2nd and 3rd vessel PCI. 1. Mid-LAD bifurcation 85% to 0. 2. MOM 80% to 0. Continue Aggrastat for another 18hrs.
[2017-10-01] MEDS: AGGRASTAT DRIP (12.5 MG/250 ML) 12,500 MCG/250 ML BAG IV SCH (13:43)
[2017-10-01] MEDS ORDERED: NACL 0.9% 1000 ML 1,000 ML IV SCH (14:00)
--- NOTE | 2017-10-01 14:35 | Cardiac Catherization Report ---
REASON FOR PROCEDURE: The patient is a 57-year-old woman who presented with an inferior wall ST elevation myocardial infarction. Two days ago, she underwent primary angioplasty and stenting of the completely occluded right coronary artery. She returns to the electroplating laborer today, for coronary intervention to severe occlusive lesions in the mid LAD and mid obtuse marginal branch of the circumflex artery. PROCEDURES PERFORMED: 1. Two-vessel coronary intervention. 2. Angioplasty and stenting of the mid left anterior descending bifurcation stenosis. 3. Angioplasty and stenting of the second vessel, stenosis of the mid obtuse marginal branch of the circumflex artery. DESCRIPTION OF PROCEDURE: The patient was prepped and draped in a sterile fashion after informed consent. Right femoral artery was entered using the Seldinger technique followed by placement of a 6-[place] sheath. We selected a number 3.5 XB guiding catheter and advanced to the left coronary ostium. Preintervention angiograms were taken. We commenced initial intervention to the LAD. A [employer] 50 guidewire was advanced into the diagonal branch adjacent to the mid LAD lesion. Another guidewire was then introduced into the LAD. Balloon angioplasty was then performed on the LAD wire, predilating the stenosis. We then deployed a 2.75 x 18 mm drug-eluting stent, covering the entire lesional segment and across the origin of the diagonal. Following stenting, there was an excellent angiographic result in the LAD, with evidence of ostial compromise of the diagonal from the stent struts. The diagonal branch wire was then withdrawn, and reinserted through the stent struts. Balloon angioplasty was then performed to the ostium of the diagonal using a 2.25 mm balloon. Following this, there was an excellent angiographic result at the treated site, with a 0 residual stenosis in the LAD and 0 residual stenosis in the diagonal ostium. HUMZA 3 flow was maintained in both LAD and diagonal. We then turned our attention to the circumflex system. The wires were withdrawn from the LAD and diagonal, and the Build[employer] Gr[employer] Coordinator 50 guidewire was reinserted into the circumflex across the lesion in the mid obtuse marginal. Predilatation balloon angioplasty was performed using a 3.0 mm balloon. We then deployed a 3.5 mm drug-eluting stent to that lesion, and inflated stent to optimal pressure. Due to finding of a distal stent edge dissection, another 3.5 mm stent was deployed adjacent to the distal border. Following deployment of both stents, there was an excellent angiographic result, 0 residual stenosis and HUMZA 3 flow down the large obtuse marginal. Procedure was well tolerated by the patient and there were no complications. The catheters and the wires were removed, the patient returned to the postprocedure unit in stable condition. CONCLUSION: 1. Multivessel coronary artery disease. 2. Status post angioplasty and stenting of a complex bifurcation stenosis of the mid LAD, a 2.75 mm drug-eluting stent was deployed. 3. Status post second vessel angioplasty and stenting of the mid obtuse marginal branch, 3.5 mm drug-eluting stents deployed. JOB# [id number] MICHELLE/NTS
--- NOTE | 2017-10-01 23:30 | Progress Note ---
Assessment and Plan Assessment and plan: Patient is a 57 YO Female with Nicotine Dependence, Obesity, HTN presents to ED for evaluation of chest pain and noted to Have acute coronary syndrome. History was limited due to lung which barrier although persisted and was able to translate according to the patient's request. On admission Pt denies fever, chills, palpitations, NVD, syncope, productive cough, shortness of breath, recent ill contacts, BRBPR, hemoptysis, leg pain, calf pain, prolonted travel/immobility, individual/family history of DVT/PE. Acute coronary syndrome possible non-ST elevated MN * Discussed with cardiology concerned about subtle elevation of ST segments consistent with an inferior MN although not available old EKGs for comparison. They decided to proceed with cardiac catheterization and treatment for subacute inferior injury. Patient received 2 stents old chest with ICU. HTN HLD OBESITY WITH BMI 30.0-34.9 PLAN * Continue current ICU For secondary repeat PCI in a.m. Labs remain stable. Treatment, Heparin gtt, ASA, statin, BB Plavix, * Echo * Continue on Aggrast * Counselling on weight loss * DVT/GI prophy The high probability of a clinically significant, sudden or life threatening deterioration of the [cardiac] system(s) required my full and direct attention, intervention and personal management. The aggregate critical care time was [35] minutes. This time is in addition to time spent performing reported procedures but includes the following: [x] Data Review and interpretation [x] Patient assessment and monitoring of vital signs [x] Documentation [x] Medication orders and management History Interval history: Patient seen and examined in no acute distress she is resting comfortably in no acute distress at this time. no adverse event reported by nursing staff. Hospitalist Physical - Physical exam Narrative exam: VITAL SIGNS: Reviewed. GENERAL: The patient appeared well nourished and normally developed. Vital signs as documented. HEAD: No signs of head trauma. EYES: Pupils are equal. Extraocular motions intact. EARS: Hearing grossly intact. MOUTH: Oropharynx is normal. NECK: No adenopathy, no JVD. CHEST: Chest with clear breath sounds bilaterally. No wheezes, rales, or rhonchi. CARDIAC: Regular rate and rhythm. S1 and S2, without murmurs, gallops, or rubs. VASCULAR: No Edema. Peripheral pulses normal and equal in all extremities. ABDOMEN: Soft, without detectable tenderness. No sign of distention. No rebound or guarding, and no masses palpated. Bowel Sounds normal. MUSCULOSKELETAL: Good range of motion of all major joints. Extremities without clubbing, cyanosis or edema. NEUROLOGIC EXAM: Alert and oriented x 3. No focal sensory or strength deficits. Speech normal. Follows commands. PSYCHIATRIC: Mood normal. SKIN: No rash or lesions. - Constitutional Vitals: Temp Pulse Resp BP Pulse Ox 98.8 F 64 19 143/95 98 10/01/17 23:17 10/01/17 21:21 10/01/17 21:21 10/01/17 21:21 10/01/17 21:21 General appearance: Present: no acute distress, well-nourished Results - Labs CBC & Chem 7: 10/02/17 03:18 10/02/17 03:18 Labs: Laboratory Last Values WBC 7.6 K/mm3 (4.5-11.0) 09/30/17 03:34 RBC 4.05 M/mm3 (3.65-5.03) 09/30/17 03:34 Hgb 12.9 gm/dl (10.1-14.3) 09/30/17 03:34 Hct 36.8 % (30.3-42.9) 09/30/17 03:34 MCV 91 fl (79-97) 09/30/17 03:34 MCH 32 pg (28-32) 09/30/17 03:34 MCHC 35 % (30-34) H 09/30/17 03:34 RDW 12.6 % (13.2-15.2) L 09/30/17 03:34 Plt Count 246 K/mm3 (140-440) 09/30/17 03:34 Lymph % (Auto) 29.1 % (13.4-35.0) 09/30/17 03:34 [place] % (Auto) 6.0 % (0.0-7.3) 09/30/17 03:34 Eos % (Auto) 5.2 % (0.0-4.3) H 09/30/17 03:34 Baso % (Auto) 0.9 % (0.0-1.8) 09/30/17 03:34 Lymph # 2.2 K/mm3 (1.2-5.4) 09/30/17 03:34 [place] # 0.5 K/mm3 (0.0-0.8) 09/30/17 03:34 Eos # 0.4 K/mm3 (0.0-0.4) 09/30/17 03:34 Baso # 0.1 K/mm3 (0.0-0.1) 09/30/17 03:34 Seg Neutrophils % 58.8 % (40.0-70.0) 09/30/17 03:34 Seg Neutrophils # 4.5 K/mm3 (1.8-7.7) 09/30/17 03:34 PT 13.2 Sec. (12.2-14.9) 10/01/17 04:58 INR 0.95 (0.87-1.13) 10/01/17 04:58 APTT 29.1 Sec. (24.2-36.6) 09/28/17 18:29 Activated Clotting Time 164 (74-137) H 10/01/17 15:16 Heparin Anti-Xa Level 0.10 U.I./ml (0.3-0.7) L 09/30/17 00:47 Sodium 141 mmol/L (137-145) 10/01/17 04:58 Potassium 3.8 mmol/L (3.6-5.0) 10/01/17 04:58 Chloride 106.7 mmol/L (98-107) 10/01/17 04:58 Carbon Dioxide 22 mmol/L (22-30) 10/01/17 04:58 Anion Gap 16 mmol/L 10/01/17 04:58 BUN 7 mg/dL (7-17) 10/01/17 04:58 Creatinine 0.4 mg/dL (0.7-1.2) L 10/01/17 04:58 Estimated GFR > 60 ml/min 10/01/17 04:58 BUN/Creatinine Ratio 18 % 10/01/17 04:58 Glucose 129 mg/dL (65-100) H 10/01/17 04:58 POC Glucose 145 (70-105) H 10/01/17 17:55 Calcium 8.6 mg/dL (8.4-10.2) 10/01/17 04:58 Total Bilirubin 0.20 mg/dL (0.1-1.2) 09/28/17 15:35 Direct Bilirubin < 0.2 mg/dL (0-0.2) 09/28/17 15:35 Indirect Bilirubin 0.0 mg/dL 09/28/17 15:35 AST 31 units/L (5-40) 09/28/17 15:35 ALT 22 units/L (7-56) 09/28/17 15:35 Alkaline Phosphatase 99 units/L (35-129) 09/28/17 15:35 Total Creatine Kinase 327 units/L (30-135) H 09/30/17 03:34 CK-MB (CK-2) 17.5 ng/mL (0.0-4.0) H 09/30/17 03:34 CK-MB (CK-2) Rel Index 5.3 (0-4) H 09/30/17 03:34 Troponin T 0.713 ng/mL (0.00-0.029) H* D 09/30/17 03:34 Total Protein 6.1 g/dL (6.3-8.2) L 09/28/17 15:35 Albumin 4.1 g/dL (3.9-5) 09/28/17 15:35 Albumin/Globulin Ratio 2.1 % 09/28/17 15:35 Triglycerides 426 mg/dL (2-149) H 09/28/17 15:35 Cholesterol 213 mg/dL (50-199) H 09/28/17 15:35 LDL Cholesterol Direct TNR 09/28/17 15:35 HDL Cholesterol 32 mg/dL (40-59) L 09/28/17 15:35 Cholesterol/HDL Ratio 6.65 % 09/28/17 15:35 Urine Color Yellow (Yellow) 09/28/17 15:58 Urine Turbidity Clear (Clear) 09/28/17 15:58 Urine pH 6.0 (5.0-7.0) 09/28/17 15:58 Ur Specific [place] 1.023 (1.003-1.030) 09/28/17 15:58 Urine Protein 100 mg/dl mg/dL (Negative) 09/28/17 15:58 Urine Glucose (UA) Neg mg/dL (Negative) 09/28/17 15:58 Urine Ketones Tr mg/dL (Negative) 09/28/17 15:58 Urine Blood Neg (Negative) 09/28/17 15:58 Urine Nitrite Neg (Negative) 09/28/17 15:58 Urine Bilirubin Neg (Negative) 09/28/17 15:58 Urine Urobilinogen 2.0 mg/dL (<2.0) 09/28/17 15:58 Ur Leukocyte Esterase Mod (Negative) 09/28/17 15:58 Urine WBC (Auto) 1.0 /HPF (0.0-6.0) 09/28/17 15:58 Urine RBC (Auto) 2.0 /HPF (0.0-6.0) 09/28/17 15:58 U Epithel Cells (Auto) 8.0 /HPF (0-13.0) 09/28/17 15:58 Urine Bacteria (Auto) 1+ /HPF (Negative) 09/28/17 15:58 Calcium Oxalate Crystal 1+ 09/28/17 15:58 Urine Mucus Few /HPF 09/28/17 15:58
[2017-10-02 03:55] LABS: Basophils % (Auto) 0.8 % (0.0-1.8); Eosinophils % (Auto) 7.4 % (0.0-4.3); Hematocrit 35.8 % (30.3-42.9); Hemoglobin 12.3 gm/dl (10.1-14.3); Mean Corpuscular HGB Conc 34 % (30-34); Mean Corpuscular Hemoglobin 32 pg (28-32); Mean Corpuscular Volume 92 fl (79-97); Platelet Count 243 K/mm3 (140-440); Red Blood Count 3.87 M/mm3 (3.65-5.03); Red Cell Distribution Width 12.6 % (13.2-15.2); White Blood Count 6.2 K/mm3 (4.5-11.0)
[2017-10-02 04:05] LABS: Anion Gap 19 mmol/L; BUN/Creatinine Ratio 13; Blood Urea Nitrogen 5 mg/dL (7-17); Calcium 8.5 mg/dL (8.4-10.2); Carbon Dioxide 20 mmol/L (22-30); Chloride 106.8 mmol/L (98-107); Creatine Kinase 135 units/L (30-135); Glucose 120 mg/dL (65-100); Potassium 3.9 mmol/L (3.6-5.0); Sodium 142 mmol/L (137-145)
[2017-10-02] MEDS: LOPRESSOR PO SCH ×3 (05:40→21:22)
--- NOTE | 2017-10-02 07:59 | XRay Report ---
Single view chest: Compared to 09/28/17. History: Post PCI. Findings: Borderline cardiomegaly. Trachea is midline. No consolidation, pneumothorax or pleural effusion. Impression: No acute cardiopulmonary findings.
--- NOTE | 2017-10-02 08:01 | Progress Note ---
Assessment and Plan Assessment and plan: Patient is a 57 YO Female with Nicotine Dependence, Obesity, HTN presents to ED for evaluation of chest pain and noted to Have acute coronary syndrome. History was limited due to lung which barrier although persisted and was able to translate according to the patient's request. On admission Pt denies fever, chills, palpitations, NVD, syncope, productive cough, shortness of breath, recent ill contacts, BRBPR, hemoptysis, leg pain, calf pain, prolonted travel/immobility, individual/family history of DVT/PE. Acute coronary syndrome possible non-ST elevated [place] * Discussed with cardiology concerned about subtle elevation of ST segments consistent with an inferior [place] although not available old EKGs for comparison. They decided to proceed with cardiac catheterization and treatment for subacute inferior injury. Patient received 2 stents * Now s/p stenting to RCA, Mid LAD and MOM; no N/V/F/C; no chest pains or palpitations HTN HLD OBESITY WITH BMI 30.0-34.9 PLAN * Labs remain stable. Treatment, Heparin gtt, ASA, statin, BB Plavix, * Echo * Continue on Aggrast * Counselling on weight loss * DVT/GI prophy Transfer to [facility], DISCONTINUE HEPARIN GTT History Interval history: Patient seen and examined in no acute distress she is resting comfortably in no acute distress at this time. no adverse event reported by nursing staff. family at bedside Hospitalist Physical - Physical exam Narrative exam: VITAL SIGNS: Reviewed. GENERAL: The patient appeared well nourished and normally developed. Vital signs as documented. HEAD: No signs of head trauma. EYES: Pupils are equal. Extraocular motions intact. EARS: Hearing grossly intact. MOUTH: Oropharynx is normal. NECK: No adenopathy, no JVD. CHEST: Chest with clear breath sounds bilaterally. No wheezes, rales, or rhonchi. CARDIAC: Regular rate and rhythm. S1 and S2, without murmurs, gallops, or rubs. VASCULAR: No Edema. Peripheral pulses normal and equal in all extremities. ABDOMEN: Soft, without detectable tenderness. No sign of distention. No rebound or guarding, and no masses palpated. Bowel Sounds normal. MUSCULOSKELETAL: Good range of motion of all major joints. Extremities without clubbing, cyanosis or edema. NEUROLOGIC EXAM: Alert and oriented x 3. No focal sensory or strength deficits. Speech normal. Follows commands. PSYCHIATRIC: Mood normal. SKIN: No rash or lesions. - Constitutional Vitals: Temp Pulse Resp BP Pulse Ox 98.7 F 53 L 15 126/58 97 10/02/17 03:40 10/02/17 06:21 10/02/17 06:21 10/02/17 06:21 10/02/17 06:21 General appearance: Present: no acute distress, well-nourished Results - Labs CBC & Chem 7: 10/02/17 03:18 10/02/17 03:18 Labs: Laboratory Last Values WBC 6.2 K/mm3 (4.5-11.0) 10/02/17 03:18 RBC 3.87 M/mm3 (3.65-5.03) 10/02/17 03:18 Hgb 12.3 gm/dl (10.1-14.3) 10/02/17 03:18 Hct 35.8 % (30.3-42.9) 10/02/17 03:18 MCV 92 fl (79-97) 10/02/17 03:18 MCH 32 pg (28-32) 10/02/17 03:18 MCHC 34 % (30-34) 10/02/17 03:18 RDW 12.6 % (13.2-15.2) L 10/02/17 03:18 Plt Count 243 K/mm3 (140-440) 10/02/17 03:18 Lymph % (Auto) 28.7 % (13.4-35.0) 10/02/17 03:18 [place] % (Auto) 5.6 % (0.0-7.3) 10/02/17 03:18 Eos % (Auto) 7.4 % (0.0-4.3) H 10/02/17 03:18 Baso % (Auto) 0.8 % (0.0-1.8) 10/02/17 03:18 Lymph # 1.8 K/mm3 (1.2-5.4) 10/02/17 03:18 [place] # 0.3 K/mm3 (0.0-0.8) 10/02/17 03:18 Eos # 0.5 K/mm3 (0.0-0.4) H 10/02/17 03:18 Baso # 0.0 K/mm3 (0.0-0.1) 10/02/17 03:18 Seg Neutrophils % 57.5 % (40.0-70.0) 10/02/17 03:18 Seg Neutrophils # 3.6 K/mm3 (1.8-7.7) 10/02/17 03:18 PT 13.2 Sec. (12.2-14.9) 10/01/17 04:58 INR 0.95 (0.87-1.13) 10/01/17 04:58 APTT 29.1 Sec. (24.2-36.6) 09/28/17 18:29 Activated Clotting Time 164 (74-137) H 10/01/17 15:16 Heparin Anti-Xa Level 0.10 U.I./ml (0.3-0.7) L 09/30/17 00:47 Sodium 142 mmol/L (137-145) 10/02/17 03:18 Potassium 3.9 mmol/L (3.6-5.0) 10/02/17 03:18 Chloride 106.8 mmol/L (98-107) 10/02/17 03:18 Carbon Dioxide 20 mmol/L (22-30) L 10/02/17 03:18 Anion Gap 19 mmol/L 10/02/17 03:18 BUN 5 mg/dL (7-17) L 10/02/17 03:18 Creatinine 0.4 mg/dL (0.7-1.2) L 10/02/17 03:18 Estimated GFR > 60 ml/min 10/02/17 03:18 BUN/Creatinine Ratio 13 % 10/02/17 03:18 Glucose 120 mg/dL (65-100) H 10/02/17 03:18 POC Glucose 127 (70-105) H 10/02/17 05:28 Calcium 8.5 mg/dL (8.4-10.2) 10/02/17 03:18 Total Bilirubin 0.20 mg/dL (0.1-1.2) 09/28/17 15:35 Direct Bilirubin < 0.2 mg/dL (0-0.2) 09/28/17 15:35 Indirect Bilirubin 0.0 mg/dL 09/28/17 15:35 AST 31 units/L (5-40) 09/28/17 15:35 ALT 22 units/L (7-56) 09/28/17 15:35 Alkaline Phosphatase 99 units/L (35-129) 09/28/17 15:35 Total Creatine Kinase 135 units/L (30-135) 10/02/17 03:18 CK-MB (CK-2) 5.0 ng/mL (0.0-4.0) H 10/02/17 03:18 CK-MB (CK-2) Rel Index 3.7 (0-4) 10/02/17 03:18 Troponin T 0.938 ng/mL (0.00-0.029) H* D 10/02/17 03:18 Total Protein 6.1 g/dL (6.3-8.2) L 09/28/17 15:35 Albumin 4.1 g/dL (3.9-5) 09/28/17 15:35 Albumin/Globulin Ratio 2.1 % 09/28/17 15:35 Triglycerides 426 mg/dL (2-149) H 09/28/17 15:35 Cholesterol 213 mg/dL (50-199) H 09/28/17 15:35 LDL Cholesterol Direct TNR 09/28/17 15:35 HDL Cholesterol 32 mg/dL (40-59) L 09/28/17 15:35 Cholesterol/HDL Ratio 6.65 % 09/28/17 15:35 Urine Color Yellow (Yellow) 09/28/17 15:58 Urine Turbidity Clear (Clear) 09/28/17 15:58 Urine pH 6.0 (5.0-7.0) 09/28/17 15:58 Ur Specific [place] 1.023 (1.003-1.030) 09/28/17 15:58 Urine Protein 100 mg/dl mg/dL (Negative) 09/28/17 15:58 Urine Glucose (UA) Neg mg/dL (Negative) 09/28/17 15:58 Urine Ketones Tr mg/dL (Negative) 09/28/17 15:58 Urine Blood Neg (Negative) 09/28/17 15:58 Urine Nitrite Neg (Negative) 09/28/17 15:58 Urine Bilirubin Neg (Negative) 09/28/17 15:58 Urine Urobilinogen 2.0 mg/dL (<2.0) 09/28/17 15:58 Ur Leukocyte Esterase Mod (Negative) 09/28/17 15:58 Urine WBC (Auto) 1.0 /HPF (0.0-6.0) 09/28/17 15:58 Urine RBC (Auto) 2.0 /HPF (0.0-6.0) 09/28/17 15:58 U Epithel Cells (Auto) 8.0 /HPF (0-13.0) 09/28/17 15:58 Urine Bacteria (Auto) 1+ /HPF (Negative) 09/28/17 15:58 Calcium Oxalate Crystal 1+ 09/28/17 15:58 Urine Mucus Few /HPF 09/28/17 15:58
[2017-10-02] MEDS: PLAVIX PO SCH (09:47)
[2017-10-02] MEDS: HALFPRIN EC PO SCH (09:47)
[2017-10-02] MEDS: IMDUR PO SCH (09:48)
[2017-10-02] MEDS: PEPCID PO SCH ×2 (09:48→21:22)
--- NOTE | 2017-10-02 11:06 | Progress Note ---
Assessment and Plan - Patient Problems (1) Acute coronary syndrome Current Visit: Yes Status: Acute Plan to address problem: s/p PCI RCA, Mid-LAD and MOM EF 55-60% on echocardiogram Recommendations: Continued medical therapy for coronary artery disease. Ok for transfer to telemetry. Subjective Date of service: 10/02/17 Interval history: Patient is awake, alert and appears comfortable. Objective Vital Signs Temp Pulse Pulse Resp BP BP Pulse Ox 10/02/17 10:21 65 17 128/74 97 10/02/17 10:11 64 20 137/54 97 10/02/17 10:00 73 21 137/54 98 10/02/17 09:51 67 10 L 128/73 96 10/02/17 09:48 69 128/73 10/02/17 09:41 70 17 118/50 97 10/02/17 09:31 69 21 118/50 97 10/02/17 09:21 70 11 L 123/69 99 10/02/17 09:11 62 18 136/66 97 10/02/17 09:00 59 L 16 136/66 97 10/02/17 08:54 98.7 F 10/02/17 08:51 63 16 141/77 98 10/02/17 08:41 65 17 126/63 98 10/02/17 08:30 61 17 126/63 98 10/02/17 08:21 57 L 18 145/85 96 10/02/17 08:11 61 10 L 133/72 99 10/02/17 08:00 55 L 14 133/72 98 10/02/17 07:51 58 L 13 154/74 99 10/02/17 07:41 60 13 125/58 98 10/02/17 07:30 60 21 125/58 99 10/02/17 07:21 59 L 16 129/73 97 10/02/17 07:11 63 13 128/67 98 10/02/17 07:00 50 L 22 128/67 97 10/02/17 06:51 53 L 15 137/72 97 10/02/17 06:41 58 L 15 121/55 98 10/02/17 06:30 56 L 15 132/71 97 10/02/17 06:21 53 L 15 126/58 97 10/02/17 06:11 54 L 14 121/55 97 10/02/17 06:00 56 L 15 121/55 96 10/02/17 05:51 53 L 15 111/55 96 10/02/17 05:41 53 L 15 130/62 96 10/02/17 05:40 60 10/02/17 05:30 57 L 8 L 130/62 96 10/02/17 05:21 50 L 17 145/73 96 10/02/17 05:11 55 L 18 128/78 96 10/02/17 05:00 59 L 20 128/78 96 10/02/17 04:51 54 L 15 143/84 97 10/02/17 04:41 60 17 141/77 95 10/02/17 04:30 55 L 17 141/77 98 10/02/17 04:21 59 L 14 121/66 98 10/02/17 04:15 54 L 58 L 16 96 10/02/17 04:11 57 L 13 130/64 97 10/02/17 04:00 63 16 130/64 98 10/02/17 03:51 54 L 14 134/64 96 10/02/17 03:41 54 L 14 123/53 97 10/02/17 03:40 98.7 F 10/02/17 03:30 57 L 16 114/54 97 10/02/17 03:21 61 19 118/61 98 10/02/17 03:11 56 L 12 123/53 98 10/02/17 03:00 59 L 15 123/53 98 10/02/17 02:51 62 16 139/74 95 10/02/17 02:41 57 L 14 118/63 98 10/02/17 02:30 61 17 118/63 96 10/02/17 02:21 69 17 127/65 98 10/02/17 02:11 61 15 113/59 97 10/02/17 02:00 60 16 135/77 96 10/02/17 01:51 63 10 L 116/78 98 10/02/17 01:41 57 L 17 113/59 97 10/02/17 01:31 60 16 113/59 97 10/02/17 01:21 62 18 118/54 97 10/02/17 01:11 55 L 14 115/58 97 10/02/17 01:00 55 L 14 115/58 97 10/02/17 00:51 60 16 116/63 97 10/02/17 00:41 62 17 119/54 97 10/02/17 00:30 62 11 L 126/73 96 10/02/17 00:21 59 L 16 121/57 97 10/02/17 00:11 56 L 14 119/54 97 10/02/17 00:00 56 L 18 119/54 97 10/01/17 23:55 57 L 17 135/74 97 10/01/17 23:51 58 L 18 135/74 97 10/01/17 23:41 71 17 140/63 97 10/01/17 23:30 58 L 13 140/63 99 10/01/17 23:21 61 18 132/67 98 10/01/17 23:17 98.8 F 10/01/17 23:11 58 L 19 143/80 97 10/01/17 23:00 57 L 16 143/80 98 10/01/17 22:51 58 L 18 142/70 98 10/01/17 22:41 58 L 15 128/62 99 10/01/17 22:30 57 L 18 128/62 96 10/01/17 22:21 64 16 144/70 98 10/01/17 22:11 62 10 L 132/90 98 10/01/17 22:00 64 16 140/95 98 10/01/17 21:51 58 L 12 140/95 99 10/01/17 21:41 66 14 148/89 99 10/01/17 21:30 60 16 148/89 99 10/01/17 21:21 64 19 143/95 98 10/01/17 21:11 56 L 9 L 143/87 99 10/01/17 21:05 98 10/01/17 21:00 65 18 143/87 98 10/01/17 20:51 59 L 13 137/80 99 10/01/17 20:41 56 L 17 141/81 97 10/01/17 20:30 55 L 19 141/81 98 10/01/17 20:21 59 L 18 143/84 98 10/01/17 20:11 57 L 16 97 10/01/17 20:00 56 L 17 142/82 99 10/01/17 19:50 59 L 17 142/82 98 10/01/17 19:40 58 L 13 150/77 99 10/01/17 19:33 99 F 10/01/17 19:30 63 16 150/77 99 10/01/17 19:20 64 14 143/83 98 10/01/17 19:10 64 20 142/100 97 10/01/17 19:00 66 13 142/100 98 10/01/17 18:50 63 10 L 141/81 99 10/01/17 18:40 65 17 136/74 97 10/01/17 18:30 63 15 136/74 97 10/01/17 18:20 70 17 130/77 97 10/01/17 18:10 69 14 134/70 98 10/01/17 18:00 66 16 134/70 97 10/01/17 17:50 72 16 139/73 97 10/01/17 17:40 70 16 145/77 99 10/01/17 17:30 60 14 145/77 98 10/01/17 17:20 57 L 16 134/51 98 10/01/17 17:10 57 L 14 148/77 98 10/01/17 17:00 58 L 12 148/77 98 10/01/17 16:50 64 17 137/74 99 10/01/17 16:40 58 L 14 135/73 96 10/01/17 16:30 58 L 16 135/73 96 10/01/17 16:20 61 14 143/74 99 10/01/17 16:10 49 L 17 135/70 99 10/01/17 16:00 97.9 F 53 L 13 137/74 98 10/01/17 15:50 55 L 17 132/72 98 10/01/17 15:40 58 L 15 134/71 96 10/01/17 15:30 56 L 15 134/71 96 10/01/17 15:20 52 L 13 139/81 98 10/01/17 15:10 53 L 13 138/80 98 10/01/17 15:00 59 L 15 138/80 99 10/01/17 14:50 61 14 126/73 95 10/01/17 14:40 51 L 14 128/68 92 10/01/17 14:30 56 L 14 128/68 94 10/01/17 14:20 63 14 131/68 93 10/01/17 14:10 64 15 131/68 93 10/01/17 14:00 63 14 131/68 92 10/01/17 13:50 65 15 127/74 91 10/01/17 13:40 59 L 12 141/86 96 10/01/17 13:30 57 L 11 L 10/01/17 13:29 97.6 F 64 14 127/74 96 10/01/17 11:04 51 L 138/68 - Physical Examination General: No Apparent Distress HEENT: Positive: PERRL Cardiac: Positive: Reg Rate and Rhythm Lungs: Positive: Decreased Breath Sounds Neuro: Positive: Grossly Intact Incision: Cardiac Cath Site Extremities: Absent: edema - Labs and Meds Cardiac Enzymes 10/02/17 Range/Units 03:18 CK-MB (CK-2) 5.0 H (0.0-4.0) ng/mL CBC 10/02/17 Range/Units 03:18 WBC 6.2 (4.5-11.0) K/mm3 RBC 3.87 (3.65-5.03) M/mm3 Hgb 12.3 (10.1-14.3) gm/dl Hct 35.8 (30.3-42.9) % Plt Count 243 (140-440) K/mm3 Lymph # 1.8 (1.2-5.4) K/mm3 Howard # 0.3 (0.0-0.8) K/mm3 Eos # 0.5 H (0.0-0.4) K/mm3 Baso # 0.0 (0.0-0.1) K/mm3 Comprehensive Metabolic Panel 10/02/17 Range/Units 03:18 Sodium 142 (137-145) mmol/L Potassium 3.9 (3.6-5.0) mmol/L Chloride 106.8 (98-107) mmol/L Carbon Dioxide 20 L (22-30) mmol/L BUN 5 L (7-17) mg/dL Creatinine 0.4 L (0.7-1.2) mg/dL Glucose 120 H (65-100) mg/dL Calcium 8.5 (8.4-10.2) mg/dL
--- NOTE | 2017-10-02 12:01 | Progress Note ---
Subjective Date of service: 10/02/17 Principal diagnosis: ACS; CAD s/p stenting; tobacco use disorder Interval history: Patient is seen today for: ACS; CAD s/p stenting; tobacco use disorder Seen and examined at bedside; 24 hour events reviewed; nursing and respiratory care staff consulted; no adverse overnight events reported to me; resting peacefully in bed; denies acute chest pains or increased SOB; feels better; no N /V/F/C Objective Vital Signs - 12hr 10/02/17 10/02/17 10/02/17 00:11 00:21 00:30 Temperature Pulse Rate 56 L 59 L 62 Pulse Rate [ Right Dorsalis Pedis] Respiratory 14 16 11 L Rate Blood Pressure 119/54 121/57 126/73 O2 Sat by Pulse 97 97 96 Oximetry 10/02/17 10/02/17 10/02/17 00:41 00:51 01:00 Temperature Pulse Rate 62 60 55 L Pulse Rate [ Right Dorsalis Pedis] Respiratory 17 16 14 Rate Blood Pressure 119/54 116/63 115/58 O2 Sat by Pulse 97 97 97 Oximetry 10/02/17 10/02/17 10/02/17 01:11 01:21 01:31 Temperature Pulse Rate 55 L 62 60 Pulse Rate [ Right Dorsalis Pedis] Respiratory 14 18 16 Rate Blood Pressure 115/58 118/54 113/59 O2 Sat by Pulse 97 97 97 Oximetry 10/02/17 10/02/17 10/02/17 01:41 01:51 02:00 Temperature Pulse Rate 57 L 63 60 Pulse Rate [ Right Dorsalis Pedis] Respiratory 17 10 L 16 Rate Blood Pressure 113/59 116/78 135/77 O2 Sat by Pulse 97 98 96 Oximetry 10/02/17 10/02/17 10/02/17 02:11 02:21 02:30 Temperature Pulse Rate 61 69 61 Pulse Rate [ Right Dorsalis Pedis] Respiratory 15 17 17 Rate Blood Pressure 113/59 127/65 118/63 O2 Sat by Pulse 97 98 96 Oximetry 10/02/17 10/02/17 10/02/17 02:41 02:51 03:00 Temperature Pulse Rate 57 L 62 59 L Pulse Rate [ Right Dorsalis Pedis] Respiratory 14 16 15 Rate Blood Pressure 118/63 139/74 123/53 O2 Sat by Pulse 98 95 98 Oximetry 11/10/02/17 10/02/17 03:11 03:21 03:30 Temperature Pulse Rate 56 L 61 57 L Pulse Rate [ Right Dorsalis Pedis] Respiratory 12 19 16 Rate Blood Pressure 123/53 118/61 114/54 O2 Sat by Pulse 98 98 97 Oximetry 10/02/17 10/02/17 10/02/17 03:40 03:41 03:51 Temperature 98.7 F Pulse Rate 54 L 54 L Pulse Rate [ Right Dorsalis Pedis] Respiratory 14 14 Rate Blood Pressure 123/53 134/64 O2 Sat by Pulse 97 96 Oximetry 10/02/17 10/02/17 10/02/17 04:00 04:11 04:15 Temperature Pulse Rate 63 57 L 54 L Pulse Rate [ 58 L Right Dorsalis Pedis] Respiratory 16 13 16 Rate Blood Pressure 130/64 130/64 O2 Sat by Pulse 98 97 96 Oximetry 10/02/17 10/02/17 10/02/17 04:21 04:30 04:41 Temperature Pulse Rate 59 L 55 L 60 Pulse Rate [ Right Dorsalis Pedis] Respiratory 14 17 17 Rate Blood Pressure 121/66 141/77 141/77 O2 Sat by Pulse 98 98 95 Oximetry 10/02/17 10/02/17 10/02/17 04:51 05:00 05:11 Temperature Pulse Rate 54 L 59 L 55 L Pulse Rate [ Right Dorsalis Pedis] Respiratory 15 20 18 Rate Blood Pressure 143/84 128/78 128/78 O2 Sat by Pulse 97 96 96 Oximetry 10/02/17 10/02/17 10/02/17 05:21 05:30 05:40 Temperature Pulse Rate 50 L 57 L 60 Pulse Rate [ Right Dorsalis Pedis] Respiratory 17 8 L Rate Blood Pressure 145/73 130/62 O2 Sat by Pulse 96 96 Oximetry 10/02/17 10/02/17 10/02/17 05:41 05:51 06:00 Temperature Pulse Rate 53 L 53 L 56 L Pulse Rate [ Right Dorsalis Pedis] Respiratory 15 15 15 Rate Blood Pressure 130/62 111/55 121/55 O2 Sat by Pulse 96 96 96 Oximetry 10/02/17 10/02/17 10/02/17 06:11 06:21 06:30 Temperature Pulse Rate 54 L 53 L 56 L Pulse Rate [ Right Dorsalis Pedis] Respiratory 14 15 15 Rate Blood Pressure 121/55 126/58 132/71 O2 Sat by Pulse 97 97 97 Oximetry 10/02/17 10/02/17 10/02/17 06:41 06:51 07:00 Temperature Pulse Rate 58 L 53 L 50 L Pulse Rate [ Right Dorsalis Pedis] Respiratory 15 15 22 Rate Blood Pressure 121/55 137/72 128/67 O2 Sat by Pulse 98 97 97 Oximetry 10/02/17 10/02/17 10/02/17 07:11 07:21 07:30 Temperature Pulse Rate 63 59 L 60 Pulse Rate [ Right Dorsalis Pedis] Respiratory 13 16 21 Rate Blood Pressure 128/67 129/73 125/58 O2 Sat by Pulse 98 97 99 Oximetry 10/02/17 10/02/17 10/02/17 07:41 07:51 08:00 Temperature Pulse Rate 60 58 L 55 L Pulse Rate [ Right Dorsalis Pedis] Respiratory 13 13 14 Rate Blood Pressure 125/58 154/74 133/72 O2 Sat by Pulse 98 99 98 Oximetry 10/02/17 10/02/17 10/02/17 08:11 08:21 08:30 Temperature Pulse Rate 61 57 L 61 Pulse Rate [ Right Dorsalis Pedis] Respiratory 10 L 18 17 Rate Blood Pressure 133/72 145/85 126/63 O2 Sat by Pulse 99 96 98 Oximetry 10/02/17 10/02/17 10/02/17 08:41 08:51 08:54 Temperature 98.7 F Pulse Rate 65 63 Pulse Rate [ Right Dorsalis Pedis] Respiratory 17 16 Rate Blood Pressure 126/63 141/77 O2 Sat by Pulse 98 98 Oximetry 10/02/17 10/02/17 10/02/17 09:00 09:11 09:21 Temperature Pulse Rate 59 L 62 70 Pulse Rate [ Right Dorsalis Pedis] Respiratory 16 18 11 L Rate Blood Pressure 136/66 136/66 123/69 O2 Sat by Pulse 97 97 99 Oximetry 10/02/17 10/02/17 10/02/17 09:31 09:41 09:48 Temperature Pulse Rate 69 70 69 Pulse Rate [ Right Dorsalis Pedis] Respiratory 21 17 Rate Blood Pressure 118/50 118/50 128/73 O2 Sat by Pulse 97 97 Oximetry 10/02/17 10/02/17 10/02/17 09:51 10:00 10:11 Temperature Pulse Rate 67 73 64 Pulse Rate [ Right Dorsalis Pedis] Respiratory 10 L 21 20 Rate Blood Pressure 128/73 137/54 137/54 O2 Sat by Pulse 96 98 97 Oximetry 10/02/17 10:21 Temperature Pulse Rate 65 Pulse Rate [ Right Dorsalis Pedis] Respiratory 17 Rate Blood Pressure 128/74 O2 Sat by Pulse 97 Oximetry CBC and BMP: 10/02/17 03:18 10/02/17 03:18 ABG, PT/INR, D-dimer: PT/INR, D-dimer PT 13.2 Sec. (12.2-14.9) 10/01/17 04:58 INR 0.95 (0.87-1.13) 10/01/17 04:58 Abnormal lab findings: Abnormal Labs 09/28/17 09/28/17 09/28/17 15:35 15:35 15:35 Hgb 14.5 H Hct 43.7 H MCHC RDW 12.7 L Eos % (Auto) 5.7 H Eos # 0.5 H Activated Clotting Time Heparin Anti-Xa Level Carbon Dioxide BUN Creatinine 0.5 L Glucose 145 H POC Glucose Calcium Total Creatine Kinase CK-MB (CK-2) CK-MB (CK-2) Rel Index Troponin T 0.161 H* Total Protein 6.1 L Triglycerides 426 H Cholesterol 213 H HDL Cholesterol 32 L 09/28/17 09/28/17 09/28/17 18:29 18:29 18:29 Hgb Hct MCHC RDW 12.7 L Eos % (Auto) 4.9 H Eos # 0.5 H Activated Clotting Time Heparin Anti-Xa Level Carbon Dioxide BUN Creatinine 0.5 L Glucose 115 H POC Glucose Calcium Total Creatine Kinase CK-MB (CK-2) CK-MB (CK-2) Rel Index Troponin T 0.224 H* D Total Protein Triglycerides Cholesterol HDL Cholesterol 09/28/17 09/29/17 09/29/17 21:16 00:58 07:28 Hgb Hct MCHC RDW Eos % (Auto) Eos # Activated Clotting Time Heparin Anti-Xa Level Carbon Dioxide BUN Creatinine Glucose POC Glucose 147 H Calcium Total Creatine Kinase CK-MB (CK-2) CK-MB (CK-2) Rel Index Troponin T 0.303 H* D 0.382 H* D Total Protein Triglycerides Cholesterol HDL Cholesterol 09/29/17 09/29/17 09/29/17 12:33 12:42 13:13 Hgb Hct MCHC RDW Eos % (Auto) Eos # Activated Clotting Time 406 H 191 H 213 H Heparin Anti-Xa Level Carbon Dioxide BUN Creatinine Glucose POC Glucose Calcium Total Creatine Kinase CK-MB (CK-2) CK-MB (CK-2) Rel Index Troponin T Total Protein Triglycerides Cholesterol HDL Cholesterol 09/29/17 09/29/17 09/29/17 14:33 17:52 21:38 Hgb Hct MCHC RDW Eos % (Auto) Eos # Activated Clotting Time Heparin Anti-Xa Level Carbon Dioxide BUN Creatinine Glucose POC Glucose 133 H 147 H 119 H Calcium Total Creatine Kinase CK-MB (CK-2) CK-MB (CK-2) Rel Index Troponin T Total Protein Triglycerides Cholesterol HDL Cholesterol 09/30/17 09/30/17 09/30/17 00:47 02:07 03:34 Hgb Hct MCHC 35 H RDW 12.6 L Eos % (Auto) 5.2 H Eos # Activated Clotting Time Heparin Anti-Xa Level 0.10 L Carbon Dioxide BUN Creatinine Glucose POC Glucose 121 H Calcium Total Creatine Kinase CK-MB (CK-2) CK-MB (CK-2) Rel Index Troponin T Total Protein Triglycerides Cholesterol HDL Cholesterol 09/30/17 09/30/17 09/30/17 03:34 05:49 10:03 Hgb Hct MCHC RDW Eos % (Auto) Eos # Activated Clotting Time Heparin Anti-Xa Level Carbon Dioxide 21 L BUN Creatinine 0.4 L Glucose 132 H POC Glucose 134 H 146 H Calcium 8.1 L Total Creatine Kinase 327 H CK-MB (CK-2) 17.5 H CK-MB (CK-2) Rel Index 5.3 H Troponin T 0.713 H* D Total Protein Triglycerides Cholesterol HDL Cholesterol 09/30/17 09/30/17 09/30/17 14:04 17:31 21:45 Hgb Hct MCHC RDW Eos % (Auto) Eos # Activated Clotting Time Heparin Anti-Xa Level Carbon Dioxide BUN Creatinine Glucose POC Glucose 179 H 135 H 180 H Calcium Total Creatine Kinase CK-MB (CK-2) CK-MB (CK-2) Rel Index Troponin T Total Protein Triglycerides Cholesterol HDL Cholesterol 10/01/17 10/01/17 10/01/17 04:58 05:37 12:36 Hgb Hct MCHC RDW Eos % (Auto) Eos # Activated Clotting Time 197 H Heparin Anti-Xa Level Carbon Dioxide BUN Creatinine 0.4 L Glucose 129 H POC Glucose 143 H Calcium Total Creatine Kinase CK-MB (CK-2) CK-MB (CK-2) Rel Index Troponin T Total Protein Triglycerides Cholesterol HDL Cholesterol 10/01/17 10/01/17 10/01/17 13:06 14:13 15:16 Hgb Hct MCHC RDW Eos % (Auto) Eos # Activated Clotting Time 351 H 164 H Heparin Anti-Xa Level Carbon Dioxide BUN Creatinine Glucose POC Glucose 138 H Calcium Total Creatine Kinase CK-MB (CK-2) CK-MB (CK-2) Rel Index Troponin T Total Protein Triglycerides Cholesterol HDL Cholesterol 10/01/17 10/01/17 10/02/17 17:55 21:27 02:09 Hgb Hct MCHC RDW Eos % (Auto) Eos # Activated Clotting Time Heparin Anti-Xa Level Carbon Dioxide BUN Creatinine Glucose POC Glucose 145 H 141 H 109 H Calcium Total Creatine Kinase CK-MB (CK-2) CK-MB (CK-2) Rel Index Troponin T Total Protein Triglycerides Cholesterol HDL Cholesterol 10/02/17 10/02/17 10/02/17 03:18 03:18 05:28 Hgb Hct MCHC RDW 12.6 L Eos % (Auto) 7.4 H Eos # 0.5 H Activated Clotting Time Heparin Anti-Xa Level Carbon Dioxide 20 L BUN 5 L Creatinine 0.4 L Glucose 120 H POC Glucose 127 H Calcium Total Creatine Kinase CK-MB (CK-2) 5.0 H CK-MB (CK-2) Rel Index Troponin T 0.938 H* D Total Protein Triglycerides Cholesterol HDL Cholesterol 10/02/17 11:16 Hgb Hct MCHC RDW Eos % (Auto) Eos # Activated Clotting Time Heparin Anti-Xa Level Carbon Dioxide BUN Creatinine Glucose POC Glucose 117 H Calcium Total Creatine Kinase CK-MB (CK-2) CK-MB (CK-2) Rel Index Troponin T Total Protein Triglycerides Cholesterol HDL Cholesterol
--- NOTE | 2017-10-02 17:35 | Progress Note ---
Assessment and Plan ACS (NSTEMI) HTNTobacco Use disorder CAD s/p stenting Hyperlipidemia Obesity (BMI 33) - Continue antiplatelet therapy - secondary prevention; tobacco cessation; lipid therapy; ASA; Plavix - weight loss counselled - GI prophylaxis - further interventional treatments per cardiology - to transfer to telemetry Subjective Date of service: 10/02/17 Principal diagnosis: ACS; CAD s/p stenting; tobacco use disorder Interval history: Patient is seen today for: ACS; CAD s/p stenting; tobacco use disorder Seen and examined at bedside; 24hour events reviewed; nursing and respiratory care staff consulted; no adverse overnight events reported to me; resting peacefully; feel better; now s/p stenting to RCA, Mid LAD and MOM; no N/V/F/C; no chest pains or palpitations Objective Vital Signs - 12hr 10/02/17 10/02/17 10/02/17 05:40 05:41 05:51 Temperature Pulse Rate 60 53 L 53 L Pulse Rate [ Bilateral Femoral] Pulse Rate [ Brachial] Respiratory 15 15 Rate Blood Pressure 130/62 111/55 O2 Sat by Pulse 96 96 Oximetry 10/02/17 10/02/17 10/02/17 06:00 06:11 06:21 Temperature Pulse Rate 56 L 54 L 53 L Pulse Rate [ Bilateral Femoral] Pulse Rate [ Brachial] Respiratory 15 14 15 Rate Blood Pressure 121/55 121/55 126/58 O2 Sat by Pulse 96 97 97 Oximetry 10/02/17 10/02/17 10/02/17 06:30 06:41 06:51 Temperature Pulse Rate 56 L 58 L 53 L Pulse Rate [ Bilateral Femoral] Pulse Rate [ Brachial] Respiratory 15 15 15 Rate Blood Pressure 132/71 121/55 137/72 O2 Sat by Pulse 97 98 97 Oximetry 10/02/17 10/02/17 10/02/17 07:00 07:11 07:21 Temperature Pulse Rate 50 L 63 59 L Pulse Rate [ Bilateral Femoral] Pulse Rate [ Brachial] Respiratory 22 13 16 Rate Blood Pressure 128/67 128/67 129/73 O2 Sat by Pulse 97 98 97 Oximetry 10/02/17 10/02/17 10/02/17 07:30 07:41 07:51 Temperature Pulse Rate 60 60 58 L Pulse Rate [ Bilateral Femoral] Pulse Rate [ Brachial] Respiratory 21 13 13 Rate Blood Pressure 125/58 125/58 154/74 O2 Sat by Pulse 99 98 99 Oximetry 10/02/17 10/02/17 10/02/17 08:00 08:11 08:21 Temperature Pulse Rate 55 L 61 57 L Pulse Rate [ Bilateral Femoral] Pulse Rate [ Brachial] Respiratory 14 10 L 18 Rate Blood Pressure 133/72 133/72 145/85 O2 Sat by Pulse 98 99 96 Oximetry 10/02/17 10/02/17 10/02/17 08:30 08:41 08:51 Temperature Pulse Rate 61 65 63 Pulse Rate [ Bilateral Femoral] Pulse Rate [ Brachial] Respiratory 17 17 16 Rate Blood Pressure 126/63 126/63 141/77 O2 Sat by Pulse 98 98 98 Oximetry 10/02/17 10/02/17 10/02/17 08:54 09:00 09:11 Temperature 98.7 F Pulse Rate 59 L 62 Pulse Rate [ Bilateral Femoral] Pulse Rate [ Brachial] Respiratory 16 18 Rate Blood Pressure 136/66 136/66 O2 Sat by Pulse 97 97 Oximetry 10/02/17 10/02/17 10/02/17 09:21 09:31 09:41 Temperature Pulse Rate 70 69 70 Pulse Rate [ Bilateral Femoral] Pulse Rate [ Brachial] Respiratory 11 L 21 17 Rate Blood Pressure 123/69 118/50 118/50 O2 Sat by Pulse 99 97 97 Oximetry 10/02/17 10/02/17 10/02/17 09:48 09:51 10:00 Temperature Pulse Rate 69 67 73 Pulse Rate [ Bilateral Femoral] Pulse Rate [ Brachial] Respiratory 10 L 21 Rate Blood Pressure 128/73 128/73 137/54 O2 Sat by Pulse 96 98 Oximetry 10/02/17 10/02/17 10/02/17 10:11 10:21 12:56 Temperature 99.1 F Pulse Rate 64 65 Pulse Rate [ 64 Bilateral Femoral] Pulse Rate [ Brachial] Respiratory 20 17 20 Rate Blood Pressure 137/54 128/74 112/62 O2 Sat by Pulse 97 97 96 Oximetry 10/02/17 17:30 Temperature 99.1 F Pulse Rate Pulse Rate [ Bilateral Femoral] Pulse Rate [ 55 L Brachial] Respiratory 18 Rate Blood Pressure 110/58 O2 Sat by Pulse 97 Oximetry Constitutional: no acute distress, alert Eyes: non-icteric ENT: oropharynx moist, other (mallampatti 2) Neck: supple, no lymphadenopathy, no JVD, other (no thyromegaly) Effort: normal Ascultation: Bilateral: clear, diminished breath sounds Percussion: Bilateral: not dull Cardiovascular: regular rate and rhythm, other (no rubs or murmurs) Gastrointestinal: normoactive bowel sounds, soft, non-tender, non-distended, other (no palpable HSM) Integumentary: normal Extremities: no cyanosis, no edema, pink and warm, pulses normal, no ischemia or petechiae Neurologic: normal mental status, non-focal exam, pupils equal and round, motor strength normal and Psychiatric: mood appropriate, affect normal CBC and BMP: 10/02/17 03:18 10/02/17 03:18 ABG, PT/INR, D-dimer: PT/INR, D-dimer PT 13.2 Sec. (12.2-14.9) 10/01/17 04:58 INR 0.95 (0.87-1.13) 10/01/17 04:58 Abnormal lab findings: Abnormal Labs 09/28/17 09/28/17 09/28/17 15:35 15:35 15:35 Hgb 14.5 H Hct 43.7 H MCHC RDW 12.7 L Eos % (Auto) 5.7 H Eos # 0.5 H Activated Clotting Time Heparin Anti-Xa Level Carbon Dioxide BUN Creatinine 0.5 L Glucose 145 H POC Glucose Calcium Total Creatine Kinase CK-MB (CK-2) CK-MB (CK-2) Rel Index Troponin T 0.161 H* Total Protein 6.1 L Triglycerides 426 H Cholesterol 213 H HDL Cholesterol 32 L 09/28/17 09/28/17 09/28/17 18:29 18:29 18:29 Hgb Hct MCHC RDW 12.7 L Eos % (Auto) 4.9 H Eos # 0.5 H Activated Clotting Time Heparin Anti-Xa Level Carbon Dioxide BUN Creatinine 0.5 L Glucose 115 H POC Glucose Calcium Total Creatine Kinase CK-MB (CK-2) CK-MB (CK-2) Rel Index Troponin T 0.224 H* D Total Protein Triglycerides Cholesterol HDL Cholesterol 09/28/17 09/29/17 09/29/17 21:16 00:58 07:28 Hgb Hct MCHC RDW Eos % (Auto) Eos # Activated Clotting Time Heparin Anti-Xa Level Carbon Dioxide BUN Creatinine Glucose POC Glucose 147 H Calcium Total Creatine Kinase CK-MB (CK-2) CK-MB (CK-2) Rel Index Troponin T 0.303 H* D 0.382 H* D Total Protein Triglycerides Cholesterol HDL Cholesterol 09/29/17 09/29/17 09/29/17 12:33 12:42 13:13 Hgb Hct MCHC RDW Eos % (Auto) Eos # Activated Clotting Time 406 H 191 H 213 H Heparin Anti-Xa Level Carbon Dioxide BUN Creatinine Glucose POC Glucose Calcium Total Creatine Kinase CK-MB (CK-2) CK-MB (CK-2) Rel Index Troponin T Total Protein Triglycerides Cholesterol HDL Cholesterol 09/29/17 09/29/17 09/29/17 14:33 17:52 21:38 Hgb Hct MCHC RDW Eos % (Auto) Eos # Activated Clotting Time Heparin Anti-Xa Level Carbon Dioxide BUN Creatinine Glucose POC Glucose 133 H 147 H 119 H Calcium Total Creatine Kinase CK-MB (CK-2) CK-MB (CK-2) Rel Index Troponin T Total Protein Triglycerides Cholesterol HDL Cholesterol 09/30/17 09/30/17 09/30/17 00:47 02:07 03:34 Hgb Hct MCHC 35 H RDW 12.6 L Eos % (Auto) 5.2 H Eos # Activated Clotting Time Heparin Anti-Xa Level 0.10 L Carbon Dioxide BUN Creatinine Glucose POC Glucose 121 H Calcium Total Creatine Kinase CK-MB (CK-2) CK-MB (CK-2) Rel Index Troponin T Total Protein Triglycerides Cholesterol HDL Cholesterol 09/30/17 09/30/17 09/30/17 03:34 05:49 10:03 Hgb Hct MCHC RDW Eos % (Auto) Eos # Activated Clotting Time Heparin Anti-Xa Level Carbon Dioxide 21 L BUN Creatinine 0.4 L Glucose 132 H POC Glucose 134 H 146 H Calcium 8.1 L Total Creatine Kinase 327 H CK-MB (CK-2) 17.5 H CK-MB (CK-2) Rel Index 5.3 H Troponin T 0.713 H* D Total Protein Triglycerides Cholesterol HDL Cholesterol 09/30/17 09/30/17 09/30/17 14:04 17:31 21:45 Hgb Hct MCHC RDW Eos % (Auto) Eos # Activated Clotting Time Heparin Anti-Xa Level Carbon Dioxide BUN Creatinine Glucose POC Glucose 179 H 135 H 180 H Calcium Total Creatine Kinase CK-MB (CK-2) CK-MB (CK-2) Rel Index Troponin T Total Protein Triglycerides Cholesterol HDL Cholesterol 10/01/17 10/01/17 10/01/17 04:58 05:37 12:36 Hgb Hct MCHC RDW Eos % (Auto) Eos # Activated Clotting Time 197 H Heparin Anti-Xa Level Carbon Dioxide BUN Creatinine 0.4 L Glucose 129 H POC Glucose 143 H Calcium Total Creatine Kinase CK-MB (CK-2) CK-MB (CK-2) Rel Index Troponin T Total Protein Triglycerides Cholesterol HDL Cholesterol 10/01/17 10/01/17 10/01/17 13:06 14:13 15:16 Hgb Hct MCHC RDW Eos % (Auto) Eos # Activated Clotting Time 351 H 164 H Heparin Anti-Xa Level Carbon Dioxide BUN Creatinine Glucose POC Glucose 138 H Calcium Total Creatine Kinase CK-MB (CK-2) CK-MB (CK-2) Rel Index Troponin T Total Protein Triglycerides Cholesterol HDL Cholesterol 10/01/17 10/01/17 10/02/17 17:55 21:27 02:09 Hgb Hct MCHC RDW Eos % (Auto) Eos # Activated Clotting Time Heparin Anti-Xa Level Carbon Dioxide BUN Creatinine Glucose POC Glucose 145 H 141 H 109 H Calcium Total Creatine Kinase CK-MB (CK-2) CK-MB (CK-2) Rel Index Troponin T Total Protein Triglycerides Cholesterol HDL Cholesterol 10/02/17 10/02/17 10/02/17 03:18 03:18 05:28 Hgb Hct MCHC RDW 12.6 L Eos % (Auto) 7.4 H Eos # 0.5 H Activated Clotting Time Heparin Anti-Xa Level Carbon Dioxide 20 L BUN 5 L Creatinine 0.4 L Glucose 120 H POC Glucose 127 H Calcium Total Creatine Kinase CK-MB (CK-2) 5.0 H CK-MB (CK-2) Rel Index Troponin T 0.938 H* D Total Protein Triglycerides Cholesterol HDL Cholesterol 10/02/17 10/02/17 11:16 15:49 Hgb Hct MCHC RDW Eos % (Auto) Eos # Activated Clotting Time Heparin Anti-Xa Level Carbon Dioxide BUN Creatinine Glucose POC Glucose 117 H 107 H Calcium Total Creatine Kinase CK-MB (CK-2) CK-MB (CK-2) Rel Index Troponin T Total Protein Triglycerides Cholesterol HDL Cholesterol Chest x-ray: image reviewed (no new or acute process; normal CXR)
--- NOTE | 2017-10-02 22:16 | Progress Note ---
Assessment and Plan Acute coronary syndrome CAD s/p PCI or RCA, mid-LAD, and MOM EF 55-60% on echocardiogram Recommendations: Continued medical therapy for coronary artery disease. BP well controlled. Continue medical therapy with BB, statin, and DAPT. Subjective Date of service: 10/02/17 Principal diagnosis: ACS; CAD s/p stenting; tobacco use disorder Interval history: No acute events. Resting comfortably. No chest pain or SOB. Objective Vital Signs Temp Pulse Pulse Pulse Pulse Resp BP 10/02/17 21:22 64 115/64 10/02/17 19:20 98.2 F 64 18 115/64 10/02/17 17:30 99.1 F 55 L 18 110/58 10/02/17 16:18 99.1 F 58 L 18 110/59 10/02/17 13:49 62 10/02/17 12:56 99.1 F 64 20 112/62 10/02/17 11:37 99.1 F 61 20 113/61 10/02/17 10:30 66 17 115/53 10/02/17 10:21 65 17 128/74 10/02/17 10:11 64 20 137/54 10/02/17 10:00 73 21 137/54 10/02/17 09:51 67 10 L 128/73 10/02/17 09:48 69 128/73 10/02/17 09:41 70 17 118/50 10/02/17 09:31 69 21 118/50 10/02/17 09:21 70 11 L 123/69 10/02/17 09:11 62 18 136/66 10/02/17 09:00 59 L 16 136/66 10/02/17 08:54 98.7 F 10/02/17 08:51 63 16 141/77 10/02/17 08:41 65 17 126/63 10/02/17 08:30 61 17 126/63 10/02/17 08:21 57 L 18 145/85 10/02/17 08:11 61 10 L 133/72 10/02/17 08:00 55 L 14 133/72 10/02/17 07:51 58 L 13 154/74 10/02/17 07:41 60 13 125/58 10/02/17 07:30 60 21 125/58 10/02/17 07:21 59 L 16 129/73 10/02/17 07:11 63 13 128/67 10/02/17 07:00 50 L 22 128/67 10/02/17 06:51 53 L 15 137/72 10/02/17 06:41 58 L 15 121/55 10/02/17 06:30 56 L 15 132/71 10/02/17 06:21 53 L 15 126/58 10/02/17 06:11 54 L 14 121/55 10/02/17 06:00 56 L 15 121/55 10/02/17 05:51 53 L 15 111/55 10/02/17 05:41 53 L 15 130/62 10/02/17 05:40 60 10/02/17 05:30 57 L 8 L 130/62 10/02/17 05:21 50 L 17 145/73 10/02/17 05:11 55 L 18 128/78 10/02/17 05:00 59 L 20 128/78 10/02/17 04:51 54 L 15 143/84 10/02/17 04:41 60 17 141/77 10/02/17 04:30 55 L 17 141/77 10/02/17 04:21 59 L 14 121/66 10/02/17 04:15 54 L 58 L 16 10/02/17 04:11 57 L 13 130/64 10/02/17 04:00 63 16 130/64 10/02/17 03:51 54 L 14 134/64 10/02/17 03:41 54 L 14 123/53 10/02/17 03:40 98.7 F 10/02/17 03:30 57 L 16 114/54 10/02/17 03:21 61 19 118/61 10/02/17 03:11 56 L 12 123/53 10/02/17 03:00 59 L 15 123/53 10/02/17 02:51 62 16 139/74 10/02/17 02:41 57 L 14 118/63 10/02/17 02:30 61 17 118/63 10/02/17 02:21 69 17 127/65 10/02/17 02:11 61 15 113/59 10/02/17 02:00 60 16 135/77 10/02/17 01:51 63 10 L 116/78 10/02/17 01:41 57 L 17 113/59 10/02/17 01:31 60 16 113/59 10/02/17 01:21 62 18 118/54 10/02/17 01:11 55 L 14 115/58 10/02/17 01:00 55 L 14 115/58 10/02/17 00:51 60 16 116/63 10/02/17 00:41 62 17 119/54 10/02/17 00:30 62 11 L 126/73 10/02/17 00:21 59 L 16 121/57 10/02/17 00:11 56 L 14 119/54 10/02/17 00:00 56 L 18 119/54 10/01/17 23:55 57 L 17 135/74 10/01/17 23:51 58 L 18 135/74 10/01/17 23:41 71 17 140/63 10/01/17 23:30 58 L 13 140/63 10/01/17 23:21 61 18 132/67 10/01/17 23:17 98.8 F 10/01/17 23:11 58 L 19 143/80 10/01/17 23:00 57 L 16 143/80 10/01/17 22:51 58 L 18 142/70 10/01/17 22:41 58 L 15 128/62 10/01/17 22:30 57 L 18 128/62 10/01/17 22:21 64 16 144/70 Pulse Ox 10/02/17 21:22 10/02/17 19:20 96 10/02/17 17:30 97 10/02/17 16:18 99 10/02/17 13:49 10/02/17 12:56 96 10/02/17 11:37 95 10/02/17 10:30 96 10/02/17 10:21 97 10/02/17 10:11 97 10/02/17 10:00 98 10/02/17 09:51 96 10/02/17 09:48 10/02/17 09:41 97 10/02/17 09:31 97 10/02/17 09:21 99 10/02/17 09:11 97 10/02/17 09:00 97 10/02/17 08:54 10/02/17 08:51 98 10/02/17 08:41 98 10/02/17 08:30 98 11/17/17 08:21 96 17/17 08:11 99 17/17 08:00 98 17/17 07:51 99 17/17 07:41 98 17/17 07:30 99 17/17 07:21 97 17/17 07:11 98 10/02/17 07:00 97 17/17 06:51 97 17/17 06:41 98 17/17 06:30 97 17/17 06:21 97 17/17 06:11 97 17/17 06:00 96 17/17 05:51 96 17/17 05:41 96 17/17 05:40 17/17 05:30 96 17/17 05:21 96 17/17 05:11 96 17/17 05:00 96 17/17 04:51 97 17/17 04:41 95 17/17 04:30 98 17/17 04:21 98 17/17 04:15 96 17/17 04:11 97 17/17 04:00 98 17/17 03:51 96 17/17 03:41 97 17/17 03:40 17/17 03:30 97 17/17 03:21 98 17/17 03:11 98 17/17 03:00 98 17/17 02:51 95 17/17 02:41 98 17/17 02:30 96 17/17 02:21 98 17/17 02:11 97 17/17 02:00 96 17/17 01:51 98 17/17 01:41 97 17/17 01:31 97 17/17 01:21 97 17/17 01:11 97 17/17 01:00 97 17/17 00:51 97 17/17 00:41 97 17/17 00:30 96 17/17 00:21 97 17/17 00:11 97 17/17 00:00 97 16/17 23:55 97 16/17 23:51 97 11/16/17 23:41 97 10/01/17 23:30 99 10/01/17 23:21 98 10/01/17 23:17 10/01/17 23:11 97 10/01/17 23:00 98 10/01/17 22:51 98 10/01/17 22:41 99 10/01/17 22:30 96 10/01/17 22:21 98 - Physical Examination General: No Apparent Distress HEENT: Positive: PERRL Neck: Positive: neck supple Neuro: Positive: Grossly Intact Abdomen: Positive: Soft Skin: Positive: Clear Incision: Cardiac Cath Site Extremities: Absent: edema - Labs and Meds Cardiac Enzymes 10/02/17 Range/Units 03:18 CK-MB (CK-2) 5.0 H (0.0-4.0) ng/mL CBC 10/02/17 Range/Units 03:18 WBC 6.2 (4.5-11.0) K/mm3 RBC 3.87 (3.65-5.03) M/mm3 Hgb 12.3 (10.1-14.3) gm/dl Hct 35.8 (30.3-42.9) % Plt Count 243 (140-440) K/mm3 Lymph # 1.8 (1.2-5.4) K/mm3 Price # 0.3 (0.0-0.8) K/mm3 Eos # 0.5 H (0.0-0.4) K/mm3 Baso # 0.0 (0.0-0.1) K/mm3 Comprehensive Metabolic Panel 10/02/17 Range/Units 03:18 Sodium 142 (137-145) mmol/L Potassium 3.9 (3.6-5.0) mmol/L Chloride 106.8 (98-107) mmol/L Carbon Dioxide 20 L (22-30) mmol/L BUN 5 L (7-17) mg/dL Creatinine 0.4 L (0.7-1.2) mg/dL Glucose 120 H (65-100) mg/dL Calcium 8.5 (8.4-10.2) mg/dL
[2017-10-03 04:58] VITALS: BP 138/75
[2017-10-03] MEDS: HALFPRIN EC PO SCH (11:26)
[2017-10-03] MEDS: PEPCID PO SCH (11:26)
[2017-10-03] MEDS: LOPRESSOR PO SCH (11:26)
[2017-10-03] MEDS: IMDUR PO SCH (11:26)
[2017-10-03] MEDS: PLAVIX PO SCH (11:26)
--- NOTE | 2017-10-03 12:47 | Discharge Summary ---
Providers - Providers Date of Admission: 09/28/17 18:02 Attending physician: DAYNA LIU MD 09/28/17 Consult to Cardiac Rehabilitation [CONS] Routine Reason For Exam: Phase I 09/28/17 18:01 Consult to Physician [CONS] Routine Consulting Provider: MADDISON BELTRAN Reason For Exam: nstemi Place consult to:: [facility] heart Notified:: y Comment:: added to list 09/29/17 Consult to Cardiac Rehabilitation [CONS] Routine Reason For Exam: post pci 09/29/17 13:19 Consult to Physician [CONS] Routine Consulting Provider: PRISCILLA PINEDO Reason For Exam: nstemi Place consult to:: pulmon Notified:: office Phone number called:: [phone] Was contact made?: Yes If yes, spoke with:: ortega Time called:: 14:28 10/01/17 Consult to Cardiac Rehabilitation [CONS] Routine Reason For Exam: post pci Primary care physician: CONTR[employer]LLED [employer] FURNACE BRAZER Hospitalization Reason for admission: chest pain Condition: Stable Hospital course: Patient is a 57 YO Female with Nicotine Dependence, Obesity, HTN presents to ED for evaluation of chest pain and noted to Have acute coronary syndrome. History was limited due to lung which barrier although persisted and was able to translate according to the patient's request. On admission Pt denies fever, chills, palpitations, NVD, syncope, productive cough, shortness of breath, recent ill contacts, BRBPR, hemoptysis, leg pain, calf pain, prolonged travel/immobility, individual/family history of DVT/PE. Patient proceeded to have a staged PCI with stents placed in RCA, MID LAD, AND MOM. extensive counselling greater than 15 mins was provided on need to lose weight and also avoid tobacco use. Medication compliance was strongly encouraged and risk discussed. Patient will follow with cardiology outpatient. * Acute coronary syndrome possible non-ST elevated PR * HTN * HLD * Tobacco Abnormality * OBESITY WITH BMI 30.0-34.9 Disposition: TO HOME OR SELFCARE Time spent for discharge: 35 mins Core Measure Documentation - Palliative Care Palliative Care/ Comfort Measures: Not Applicable - Core Measures Any of the following diagnoses?: none - VTE Discharge Requirements Deep Vein Thrombosis/Pulmonary Embolism Present on Admission: No Exam - Physical Exam Narrative exam: VITAL SIGNS: Reviewed. GENERAL: The patient appeared well nourished and normally developed. Vital signs as documented. HEAD: No signs of head trauma. EYES: Pupils are equal. Extraocular motions intact. EARS: Hearing grossly intact. MOUTH: Oropharynx is normal. NECK: No adenopathy, no JVD. CHEST: Chest with clear breath sounds bilaterally. No wheezes, rales, or rhonchi. CARDIAC: Regular rate and rhythm. S1 and S2, without murmurs, gallops, or rubs. VASCULAR: No Edema. Peripheral pulses normal and equal in all extremities. ABDOMEN: Soft, without detectable tenderness. No sign of distention. No rebound or guarding, and no masses palpated. Bowel Sounds normal. MUSCULOSKELETAL: Good range of motion of all major joints. Extremities without clubbing, cyanosis or edema. NEUROLOGIC EXAM: Alert and oriented x 3. No focal sensory or strength deficits. Speech normal. Follows commands. PSYCHIATRIC: Mood normal. SKIN: No rash or lesions. - Constitutional Vitals: Temp Pulse Resp BP Pulse Ox 98.2 F 54 L 18 138/75 93 10/03/17 04:09 10/03/17 05:00 10/03/17 04:09 10/03/17 04:09 10/03/17 04:09 Plan Activity: advance as tolerated, fall precautions Diet: low cholesterol Special Instructions: record daily BP diary Follow up with: PRIMARY MD JIM [Primary Care Provider] - 7 Days MADDISON BELTRAN MD [Staff Physician] - 7 Days Prescriptions: AtorvaSTATin [Lipitor] 40 mg PO QHS #30 tablet Aspirin EC [Aspirin Enteric Coated TAB] 81 mg PO QDAY #30 tablet Clopidogrel [Plavix] 75 mg PO QDAY #30 tablet ISOSORBIDE MONOnitrate [Imdur ER] 30 mg PO QDAY #30 tablet Metoprolol [Lopressor TAB] 12.5 mg PO BID #60 tablet
== END 2017-10-03 18:29 | disposition home or self-care (01) | DRG 247 ==
LOC: ED 15:15 → 4A 18:02 → CC1 09-29 14:42 → 4A 10-02 10:50
PROVIDERS: ADMIT Internal Medicine; ATTEND Internal Medicine
PROC: 4A023N7 Measurement of Cardiac Sampling and Pressure, Left Heart, Percutaneous Approach (ICD-10-PCS; principal; 2017-09-29)
PROC: 027034Z Dilation of Coronary Artery, One Artery with Drug-eluting Intraluminal Device, Percutaneous Approach (ICD-10-PCS; 2017-09-29)
PROC: B2111ZZ Fluoroscopy of Multiple Coronary Arteries using Low Osmolar Contrast (ICD-10-PCS; 2017-09-29)
PROC: B2151ZZ Fluoroscopy of Left Heart using Low Osmolar Contrast (ICD-10-PCS; 2017-09-29)
PROC: 027135Z Dilation of Coronary Artery, Two Arteries with Two Drug-eluting Intraluminal Devices, Percutaneous Approach (ICD-10-PCS; 2017-10-01)
DX: I21.19 ST elevation (STEMI) myocardial infarction involving other coronary artery of inferior wall (principal); E78.5 Hyperlipidemia, unspecified; I24.9 Acute ischemic heart disease, unspecified; I10 Essential (primary) hypertension; E66.9 Obesity, unspecified; I25.10 Atherosclerotic heart disease of native coronary artery without angina pectoris; F17.200 Nicotine dependence, unspecified, uncomplicated; Z68.32 Body mass index [BMI] 32.0-32.9, adult
CPT/HCPCS: 36415; 71010; 80048; 80061; 80074; 81001; 82550; 82553; 82962; 84484; 85014; 85018; 85025; 85027; 85049; 85347; 85520; 85610; 85730; 92921; 92928; 92929; 93005; 93010; 93306; 93458; 96365; 96366; 96374; 99285; 99406; A9270-GY; C1725; C1769; C1874; C1887; C1894; C9600; C9601; J1170; J1642; J1644; J2250; J3010; J3246; J7030; J7040; Q9967